=== PATIENT | female | born 1950 | race Caucasian/White ===

== ENCOUNTER 2016-10-01 07:11 | Inpatient (IN) ==
[2016-10-01 07:24] LABS: ABG Base Excess -1.5 mEq/L (-2.0 to 3.0); ABG HCO3 30.4 mEQ/L (21-27); ABG Oxygen Saturation 77 % (95-98); ABG PO2 57 mmHg (85-104); ABG TCO2 33.4 mEq/L (20-26)
[2016-10-01] MEDS: Furosemide 40 MG/4 ML VIAL IVP ONE ×2 (07:25→13:02)
[2016-10-01] MEDS: Nitroglycerin 1 INCH/GM PACKET TP ONE ×2 (07:25→13:02)
[2016-10-01] MEDS: Ipratropium/Albuterol Neb 3 ML ONE ×2 (07:25→13:03)
[2016-10-01 07:27] LABS: ABG PCO2 98 mmHg (35-45); Blood Gas FiO2 100 %
[2016-10-01 07:39] LABS: Nucleated Red Blood Cells 0.1 /100 WBC (0)
[2016-10-01 07:40] LABS: Hematocrit 37.6 % (35.3-44.9); Mean Corpuscular HGB Conc 29.3 g/dL (31.6-35.5); Mean Corpuscular Hemoglobin 24.6 pg (28.0-33.3); Mean Corpuscular Volume 84.1 fL (83.0-100.0); Mean Platelet Volume 9.5 fL (9.4-12.4); Platelet Count 547 K/mcL (140-400); Red Blood Count 4.47 M/mcL (3.82-4.97); Red Cell Distribution Width 15.8 % (11.5-14.5)
--- NOTE | 2016-10-01 07:54 | Emergency Department Note ---
Disposition Clinical Impression: Congestive heart failure Qualifiers: Congestive heart failure type: unspecified congestive heart failure type Congestive heart failure chronicity: acute Qualified Code(s): I50.9 - Heart failure, unspecified Respiratory failure Qualifiers: Chronicity: acute Respiratory failure complication: hypoxia Qualified Code(s): J96.01 - Acute respiratory failure with hypoxia Sepsis Qualifiers: Sepsis type: sepsis due to unspecified organism Qualified Code(s): A41.9 - Sepsis, unspecified organism Disposition: Admitted As Inpatient Condition: Fair Referrals: Luis Ron MD [Primary Care Provider] - 10/11/16 1:20 pm Zaar Brady DO [Partnered Physician] - 10/18/16 1:00 pm Time of Disposition: 08:43 SOB HPI - General Chief Complaint: ED Shortness of Breath/Dyspnea Stated Complaint: Resp distress/unconscious Time Seen by Provider: 10/01/16 07:16 Source: EMS Limitations: no limitations Nursing Notes Reviewed: Yes Vital Signs Reviewed: Yes - History of Present Illness Patient is a 58-year-old female who presents to [facility] ED via EMS in respiratory distress. Per EMS, they responded to a 911 call. Patient was hooked up to 2 L nasal cannula when they found her and she was saturating in the 50s. Patient was altered and was placed on a CPAP. Only medical history from EMS was history of COPD. Patient was switched over to BiPAP when she arrived. Within a few minutes, patient was able to follow commands and open her eyes spontaneously. After approximately one hour on the BiPAP, patient is able to have a little bit more history. States she has been sick over the last few days and has felt short of breath but this worsened last night. States she had a low-grade fever of 99. Pt Subjective Complaint: shortness of breath Onset (ago): day(s) Context: recent illness Severity: severe Consistency/Duration: gradually worsening Known history of: COPD Treatment prior to arrival: oxygen, NIPPV Cough present: No - Related Data Home oxygen amount: 2 liters Home Medications Medication Instructions Recorded Confirmed Metformin [Glucophage] 1,000 mg PO BID 05/21/15 10/01/16 Furosemide [Lasix] 40 mg PO BID 06/01/16 10/01/16 Ondansetron [Zofran] 8 mg PO DAILY 06/01/16 10/01/16 Potassium Chloride [K-Tab ER] 10 meq PO BID 06/01/16 10/01/16 Clopidogrel [Plavix] 75 mg PO DAILY 10/01/16 10/01/16 Fenofibrate [Lofibra] 160 mg PO DAILY 10/01/16 10/01/16 Gabapentin [Gabapentin] 800 mg PO TID 10/01/16 10/01/16 GlipiZIDE [Glipizide] 10 mg PO BID 10/01/16 10/01/16 LORazepam [Ativan] 0.5 mg PO Q8H PRN 10/01/16 10/01/16 Lisinopril [Zestril] 20 mg PO DAILY 10/01/16 10/01/16 Nitroglycerin [Nitrostat] 0.4 mg PO AD PRN 10/01/16 10/01/16 Oxycodone HCl [Oxycodone HCl] 10 mg PO TID PRN 10/01/16 10/01/16 Oxycodone HCl [Oxycodone HCl] 20 mg PO HS 10/01/16 10/01/16 Previous Rx's Medication Instructions Recorded Metoprolol XL (24 HR) Succ [Toprol 100 mg PO DAILY #30 tab.er.24h 04/26/15 XL] Isosorbide MONOnitrate (24 HR) 120 mg PO DAILY 30 Days 11/08/15 [Imdur] Atorvastatin [Lipitor] 40 mg PO HS #30 tablet 03/28/16 Allergies Allergy/AdvReac Type Severity Reaction Status Date / Time No Known Allergies Allergy Verified 07/30/16 21:39 All systems ED: reviewed and negative except as stated. Past Medical History - Past Medical History Attestation: Yes The following information was validated with the patient. Source: patient Medical history: Reports: asthma, CHF, diabetes, myocardial infarction Psychiatric history: Reports: no psych history - Social History Smoking Status: Current every day smoker Smokeless Tobacco Status: No Alcohol use: Reports: unknown Drug use: Reports: unknown Physical Exam - General Limitations: altered mental status General appearance: in distress - Head Head exam: atraumatic, normocephalic, normal inspection - Eye Eye exam: Present: normal appearance, PERRL, EOMI - ENT ENT exam: normal exam, normal oropharynx, mucous membranes moist - Neck Neck exam: Present: normal inspection, full ROM, trachea midline - Chest Chest inspection: Present: normal inspection, symmetric chest wall rise - Respiratory Respiratory exam: Present: respiratory distress, other (Crackles and decreased breath sounds bilaterally) - Cardiovascular Cardiovascular exam: Present: normal rhythm, tachycardia - Abdominal Exam Abdominal exam: Present: soft, Non-Tender. Absent: tenderness, distention, guarding, rebound, rigidity - Extremities Exam Extremities exam: Present: full ROM, pedal edema. Absent: tenderness - Back Exam Back exam: Present: normal inspection, full ROM. Absent: tenderness - Neurological Exam Neurological exam: Present: alert, oriented X3 - Psychiatric Psychiatric exam: Present: normal affect, normal mood - Skin Skin exam: Present: warm, dry, intact, normal color Course Course Narrative: Patient seen and examined. Respiratory failure. She lives able to be stabilized with BiPAP. She was given 3 duo nebs, 80 mg IV Lasix and Nitropaste. Her blood pressure was initially 200s over 100. Bedside echo showed hyperdynamic motion and dilated IVC consistent with fluid overload. Critical care workup was ordered. Chest x-ray showed pulmonary edema with some effusions and infiltration. WBC count over 25,000 with bandemia. This is consistent with pneumonia/CHF exacerbation. Patient denies knowing any history of having CHF or COPD. Patient's blood pressure has remained elevated and we will go ahead and place her on a nitro drip. We will admit to hospitalist. - Reevaluation(s) Reevaluation #1: I spoke with hospitalist Dr. Goodson who has accepted patient for admission. She would like patient on 2 N. Time: 08:41 Vital Signs Temperature 0 F L 10/01/16 07:13 Pulse Rate 130 10/01/16 07:13 Respiratory Rate 30 10/01/16 07:13 Blood Pressure 241/111 10/01/16 07:13 O2 Sat by Pulse Oximetry 94 L 10/01/16 07:13 Temperature 97.6 F 10/01/16 07:34 Pulse Rate 107 10/01/16 08:49 Respiratory Rate 26 10/01/16 08:49 Blood Pressure 159/71 10/01/16 08:49 O2 Sat by Pulse Oximetry 100 10/01/16 08:49 Oxygen Delivery Oxygen Delivery Bipap Shortness of Breath/Dyspnea - Medical Records Medical records reviewed: Yes I reviewed the patient's medical records. - Lab Data Lab results reviewed: Yes I reviewed the patient's lab results. Result diagrams: 10/01/16 07:30 10/01/16 07:52 Lab Results 10/01/16 10/01/16 10/01/16 Range/Units 04:03 07:15 07:30 WBC 25.7 H (4.3-11.1) K/mcL RBC 4.47 (3.82-4.97) M/mcL Hgb 11.0 L (11.5-15.4) g/dL Hct 37.6 (35.3-44.9) % MCV 84.1 (83.0-100.0) fL MCH 24.6 L (28.0-33.3) pg MCHC 29.3 L (31.6-35.5) g/dL RDW 15.8 H (11.5-14.5) % Plt Count 547 H (140-400) K/mcL MPV 9.5 (9.4-12.4) fL Immature Gran % Test Not Performed Seg Neutrophils % 54.0 % Band Neutrophils % 2.0 (0-4) % Lymphocytes % 36.0 % Monocytes % 6.0 % Eosinophils % 2.0 % Basophils % Test Not Performed Neutrophils # 14.4 H (1.6-8.9) K/mcL Lymphocytes # 9.3 H (0.6-4.6) K/mcL Monocytes # 1.5 H (0.0-1.3) K/mcL Eosinophils # 0.5 (0.0-0.6) K/mcL Basophils # Test Not Performed Nucleated RBCs/100 WBC 0.1 H (0) /100 WBC Platelet Estimate Slight increase H (Normal) Polychromasia 1+ A (Not Present) Hypochromasia Present A (Not Present) PT (9.4-12.1) Seconds INR APTT (26.0-36.0) Seconds ABG pH 7.10 L* (7.32-7.45) pH Units ABG pCO2 98 H* (35-45) mmHg ABG pO2 57 L (85-104) mmHg ABG HCO3 30.4 H (21-27) mEQ/L ABG Total CO2 33.4 H (20-26) mEq/L ABG O2 Saturation 77 L (95-98) % ABG Base Excess -1.5 (-2.0 to 3.0) mEq/L Blood Gas Modality BIPAP Inspired O2 100 % Sodium (136-145) mEq/L Potassium (3.5-4.5) mEq/L Chloride (98-109) mEq/L Carbon Dioxide (19-29) mEq/L BUN (7-20) mg/dL Creatinine (0.57-1.11) mg/dL Est GFR ( Amer) (> 60) Est GFR (Non-Af Amer) (> 60) BUN/Creatinine Ratio (6-26) Glucose (70-99) mg/dL Calculated Osmolality (280-300) Lactic Acid (0.5-2.2) mmol/L Calcium (8.6-10.8) mg/dL Phosphorus (2.3-4.7) mg/dL Magnesium (1.6-2.6) mg/dL Total Bilirubin (0.2-1.2) mg/dL Direct Bilirubin (0.0-0.5) mg/dL Indirect Bilirubin (0.0-1.2) mg/dL AST (5-34) Units/L ALT (0-55) Units/L Alkaline Phosphatase (38-126) Units/L Troponin I (0-0.03) ng/mL B-Natriuretic Peptide (0-100) pg/mL Serum Total Protein (6.0-8.3) g/dL Albumin (3.5-5.0) g/dL Globulin (2.4-3.5) g/dL Albumin/Globulin Ratio (1.1-2.2) Urine Color Yellow (Yellow) Urine Clarity Clear (Clear) Urine pH 6.5 (5.0-8.0) pH Units Ur Specific [place] 1.020 (1.010-1.025) Urine Protein 100 H (Neg-Trace) mg/dL Urine Glucose (UA) 500 H (Normal) mg/dL Urine Ketones Negative (Negative) mg/dL Urine Blood Trace-lysed H (Negative) Urine Nitrite Negative (Negative) Urine Bilirubin Negative (Negative) Urine Urobilinogen Normal (Normal) mg/dL Ur Leukocyte Esterase Negative (Negative) Urine Microscopic RBC 0-3 (0-3) per hpf Urine Microscopic WBC 0-3 (0-3) per hpf Ur Squamous Epith Cells Many H (None-Few) per lpf Urine Bacteria None Seen (None-Few) per hpf Hyaline Casts None Seen (None-Few) per lpf Ur Culture Indicated? NO (NO) Specimen Rejected 10/01/16 10/01/16 10/01/16 Range/Units 07:30 07:30 07:30 WBC (4.3-11.1) K/mcL RBC (3.82-4.97) M/mcL Hgb (11.5-15.4) g/dL Hct (35.3-44.9) % MCV (83.0-100.0) fL MCH (28.0-33.3) pg MCHC (31.6-35.5) g/dL RDW (11.5-14.5) % Plt Count (140-400) K/mcL MPV (9.4-12.4) fL Immature Gran % Seg Neutrophils % % Band Neutrophils % (0-4) % Lymphocytes % % Monocytes % % Eosinophils % % Basophils % Neutrophils # (1.6-8.9) K/mcL Lymphocytes # (0.6-4.6) K/mcL Monocytes # (0.0-1.3) K/mcL Eosinophils # (0.0-0.6) K/mcL Basophils # Nucleated RBCs/100 WBC (0) /100 WBC Platelet Estimate (Normal) Polychromasia (Not Present) Hypochromasia (Not Present) PT (9.4-12.1) Seconds INR APTT (26.0-36.0) Seconds ABG pH (7.32-7.45) pH Units ABG pCO2 (35-45) mmHg ABG pO2 (85-104) mmHg ABG HCO3 (21-27) mEQ/L ABG Total CO2 (20-26) mEq/L ABG O2 Saturation (95-98) % ABG Base Excess (-2.0 to 3.0) mEq/L Blood Gas Modality Inspired O2 % Sodium (136-145) mEq/L Potassium (3.5-4.5) mEq/L Chloride (98-109) mEq/L Carbon Dioxide (19-29) mEq/L BUN (7-20) mg/dL Creatinine (0.57-1.11) mg/dL Est GFR ( Amer) (> 60) Est GFR (Non-Af Amer) (> 60) BUN/Creatinine Ratio (6-26) Glucose (70-99) mg/dL Calculated Osmolality (280-300) Lactic Acid (0.5-2.2) mmol/L Calcium (8.6-10.8) mg/dL Phosphorus (2.3-4.7) mg/dL Magnesium (1.6-2.6) mg/dL Total Bilirubin (0.2-1.2) mg/dL Direct Bilirubin (0.0-0.5) mg/dL Indirect Bilirubin (0.0-1.2) mg/dL AST (5-34) Units/L ALT (0-55) Units/L Alkaline Phosphatase (38-126) Units/L Troponin I 0.02 (0-0.03) ng/mL B-Natriuretic Peptide 376 H (0-100) pg/mL Serum Total Protein (6.0-8.3) g/dL Albumin (3.5-5.0) g/dL Globulin (2.4-3.5) g/dL Albumin/Globulin Ratio (1.1-2.2) Urine Color (Yellow) Urine Clarity (Clear) Urine pH (5.0-8.0) pH Units Ur Specific [place] (1.010-1.025) Urine Protein (Neg-Trace) mg/dL Urine Glucose (UA) (Normal) mg/dL Urine Ketones (Negative) mg/dL Urine Blood (Negative) Urine Nitrite (Negative) Urine Bilirubin (Negative) Urine Urobilinogen (Normal) mg/dL Ur Leukocyte Esterase (Negative) Urine Microscopic RBC (0-3) per hpf Urine Microscopic WBC (0-3) per hpf Ur Squamous Epith Cells (None-Few) per lpf Urine Bacteria (None-Few) per hpf Hyaline Casts (None-Few) per lpf Ur Culture Indicated? (NO) Specimen Rejected Hemolyzed 10/01/16 10/01/16 10/01/16 Range/Units 07:32 07:52 07:52 WBC (4.3-11.1) K/mcL RBC (3.82-4.97) M/mcL Hgb (11.5-15.4) g/dL Hct (35.3-44.9) % MCV (83.0-100.0) fL MCH (28.0-33.3) pg MCHC (31.6-35.5) g/dL RDW (11.5-14.5) % Plt Count (140-400) K/mcL MPV (9.4-12.4) fL Immature Gran % Seg Neutrophils % % Band Neutrophils % (0-4) % Lymphocytes % % Monocytes % % Eosinophils % % Basophils % Neutrophils # (1.6-8.9) K/mcL Lymphocytes # (0.6-4.6) K/mcL Monocytes # (0.0-1.3) K/mcL Eosinophils # (0.0-0.6) K/mcL Basophils # Nucleated RBCs/100 WBC (0) /100 WBC Platelet Estimate (Normal) Polychromasia (Not Present) Hypochromasia (Not Present) PT (9.4-12.1) Seconds INR APTT (26.0-36.0) Seconds ABG pH (7.32-7.45) pH Units ABG pCO2 (35-45) mmHg ABG pO2 (85-104) mmHg ABG HCO3 (21-27) mEQ/L ABG Total CO2 (20-26) mEq/L ABG O2 Saturation (95-98) % ABG Base Excess (-2.0 to 3.0) mEq/L Blood Gas Modality Inspired O2 % Sodium 142 (136-145) mEq/L Potassium 3.6 (3.5-4.5) mEq/L Chloride 96 L (98-109) mEq/L Carbon Dioxide 27 (19-29) mEq/L BUN 12 (7-20) mg/dL Creatinine 0.90 (0.57-1.11) mg/dL Est GFR ( Amer) > 60 (> 60) Est GFR (Non-Af Amer) > 60 (> 60) BUN/Creatinine Ratio 13 (6-26) Glucose 436 H (70-99) mg/dL Calculated Osmolality 313 H (280-300) Lactic Acid 5.8 H* (0.5-2.2) mmol/L Calcium 9.8 (8.6-10.8) mg/dL Phosphorus 5.9 H (2.3-4.7) mg/dL Magnesium 1.2 L (1.6-2.6) mg/dL Total Bilirubin 0.4 (0.2-1.2) mg/dL Direct Bilirubin 0.3 (0.0-0.5) mg/dL Indirect Bilirubin 0.1 (0.0-1.2) mg/dL AST 60 H (5-34) Units/L ALT 47 (0-55) Units/L Alkaline Phosphatase 110 (38-126) Units/L Troponin I (0-0.03) ng/mL B-Natriuretic Peptide (0-100) pg/mL Serum Total Protein 7.6 (6.0-8.3) g/dL Albumin 3.2 L (3.5-5.0) g/dL Globulin 4.4 H (2.4-3.5) g/dL Albumin/Globulin Ratio 0.7 L (1.1-2.2) Urine Color (Yellow) Urine Clarity (Clear) Urine pH (5.0-8.0) pH Units Ur Specific [place] (1.010-1.025) Urine Protein (Neg-Trace) mg/dL Urine Glucose (UA) (Normal) mg/dL Urine Ketones (Negative) mg/dL Urine Blood (Negative) Urine Nitrite (Negative) Urine Bilirubin (Negative) Urine Urobilinogen (Normal) mg/dL Ur Leukocyte Esterase (Negative) Urine Microscopic RBC (0-3) per hpf Urine Microscopic WBC (0-3) per hpf Ur Squamous Epith Cells (None-Few) per lpf Urine Bacteria (None-Few) per hpf Hyaline Casts (None-Few) per lpf Ur Culture Indicated? (NO) Specimen Rejected Labelling 10/01/16 10/01/16 Range/Units 07:52 08:18 WBC (4.3-11.1) K/mcL RBC (3.82-4.97) M/mcL Hgb (11.5-15.4) g/dL Hct (35.3-44.9) % MCV (83.0-100.0) fL MCH (28.0-33.3) pg MCHC (31.6-35.5) g/dL RDW (11.5-14.5) % Plt Count (140-400) K/mcL MPV (9.4-12.4) fL Immature Gran % Seg Neutrophils % % Band Neutrophils % (0-4) % Lymphocytes % % Monocytes % % Eosinophils % % Basophils % Neutrophils # (1.6-8.9) K/mcL Lymphocytes # (0.6-4.6) K/mcL Monocytes # (0.0-1.3) K/mcL Eosinophils # (0.0-0.6) K/mcL Basophils # Nucleated RBCs/100 WBC (0) /100 WBC Platelet Estimate (Normal) Polychromasia (Not Present) Hypochromasia (Not Present) PT 13.4 H (9.4-12.1) Seconds INR 1.2 APTT 29.2 (26.0-36.0) Seconds ABG pH 7.33 D (7.32-7.45) pH Units ABG pCO2 64 H D (35-45) mmHg ABG pO2 120 H (85-104) mmHg ABG HCO3 33.7 H (21-27) mEQ/L ABG Total CO2 35.7 H (20-26) mEq/L ABG O2 Saturation 98 (95-98) % ABG Base Excess 6.1 H (-2.0 to 3.0) mEq/L Blood Gas Modality BIPAP Inspired O2 100 % Sodium (136-145) mEq/L Potassium (3.5-4.5) mEq/L Chloride (98-109) mEq/L Carbon Dioxide (19-29) mEq/L BUN (7-20) mg/dL Creatinine (0.57-1.11) mg/dL Est GFR ( Amer) (> 60) Est GFR (Non-Af Amer) (> 60) BUN/Creatinine Ratio (6-26) Glucose (70-99) mg/dL Calculated Osmolality (280-300) Lactic Acid (0.5-2.2) mmol/L Calcium (8.6-10.8) mg/dL Phosphorus (2.3-4.7) mg/dL Magnesium (1.6-2.6) mg/dL Total Bilirubin (0.2-1.2) mg/dL Direct Bilirubin (0.0-0.5) mg/dL Indirect Bilirubin (0.0-1.2) mg/dL AST (5-34) Units/L ALT (0-55) Units/L Alkaline Phosphatase (38-126) Units/L Troponin I (0-0.03) ng/mL B-Natriuretic Peptide (0-100) pg/mL Serum Total Protein (6.0-8.3) g/dL Albumin (3.5-5.0) g/dL Globulin (2.4-3.5) g/dL Albumin/Globulin Ratio (1.1-2.2) Urine Color (Yellow) Urine Clarity (Clear) Urine pH (5.0-8.0) pH Units Ur Specific [place] (1.010-1.025) Urine Protein (Neg-Trace) mg/dL Urine Glucose (UA) (Normal) mg/dL Urine Ketones (Negative) mg/dL Urine Blood (Negative) Urine Nitrite (Negative) Urine Bilirubin (Negative) Urine Urobilinogen (Normal) mg/dL Ur Leukocyte Esterase (Negative) Urine Microscopic RBC (0-3) per hpf Urine Microscopic WBC (0-3) per hpf Ur Squamous Epith Cells (None-Few) per lpf Urine Bacteria (None-Few) per hpf Hyaline Casts (None-Few) per lpf Ur Culture Indicated? (NO) Specimen Rejected - Radiology Data Radiology results reviewed: Yes I reviewed the patient's radiology results. - EKG Data EKG attestation: Yes I reviewed and interpreted this EKG. EKG results narrative: EKG done at 718 shows sinus tachycardia with a rate of 1 26/m. There is some ST depression in leads V3 through V6.
[2016-10-01] MEDS ORDERED: Nitroglycerin 25 MG/250 ML INFUS..BTL IVC SCH (08:00)
[2016-10-01 08:04] LABS: Eosinophils # 0.5 K/mcL (0.0-0.6); Lymphocytes # 9.3 K/mcL (0.6-4.6); Monocytes # 1.5 K/mcL (0.0-1.3); Neutrophils # 14.4 K/mcL (1.6-8.9)
[2016-10-01 08:05] LABS: Hypochromasia Present (Not Present); Polychromasia 1+ (Not Present)
[2016-10-01 08:08] LABS: BUN/Creatinine Ratio 13 (6-26); Blood Urea Nitrogen 12 mg/dL (7-20); Calcium 9.8 mg/dL (8.6-10.8); Carbon Dioxide 27 mEq/L (19-29); Chloride 96 mEq/L (98-109); Glucose 436 mg/dL (70-99); Osmolality,Calculated 313 (280-300); Potassium 3.6 mEq/L (3.5-4.5); Sodium 142 mEq/L (136-145); eGFR For African Americans > 60 (> 60); eGFR For Non-African Americans > 60 (> 60)
[2016-10-01] MEDS ORDERED: Vancomycin 2,000 MG in D5% in Water 500 ML IVPB ONE (08:12)
[2016-10-01] MEDS ORDERED: Levofloxacin 750 MG/150 ML 750 MG/150 ML BAG IVPB ONE (08:12)
[2016-10-01] MEDS ORDERED: Piperacillin/Tazobactam 3.375 GM in D5% in Water (Mini-Bag+) 100 ML IVPB ONE (08:12)
[2016-10-01 08:26] LABS: ABG Base Excess 6.1 mEq/L (-2.0 to 3.0); ABG HCO3 33.7 mEQ/L (21-27); ABG Oxygen Saturation 98 % (95-98); ABG PCO2 64 mmHg (35-45); ABG PH 7.33 pH Units (7.32-7.45); ABG PO2 120 mmHg (85-104); ABG TCO2 35.7 mEq/L (20-26); Blood Gas FiO2 100 %
--- NOTE | 2016-10-01 08:43 | Emergency Department Note ---
Disposition Clinical Impression: Congestive heart failure Qualifiers: Congestive heart failure type: unspecified congestive heart failure type Congestive heart failure chronicity: acute Qualified Code(s): I50.9 - Heart failure, unspecified Respiratory failure Qualifiers: Chronicity: acute Respiratory failure complication: hypoxia Qualified Code(s): J96.01 - Acute respiratory failure with hypoxia Sepsis Qualifiers: Sepsis type: sepsis due to unspecified organism Qualified Code(s): A41.9 - Sepsis, unspecified organism Disposition: Admitted As Inpatient Condition: Fair SOB HPI - General Chief Complaint: ED Shortness of Breath/Dyspnea Stated Complaint: Resp distress/unconscious Time Seen by Provider: 10/01/16 07:16 Source: EMS Limitations: altered mental status - History of Present Illness Severity: severe Treatment prior to arrival: oxygen, NIPPV - Related Data Home oxygen amount: 2 liters Home Medications Medication Instructions Recorded Confirmed Metformin [Glucophage] 1,000 mg PO BID 05/21/15 10/01/16 Furosemide [Lasix] 40 mg PO BID 06/01/16 10/01/16 Ondansetron [Zofran] 8 mg PO DAILY 06/01/16 10/01/16 Potassium Chloride [K-Tab ER] 10 meq PO BID 06/01/16 10/01/16 Clopidogrel [Plavix] 75 mg PO DAILY 10/01/16 10/01/16 Fenofibrate [Lofibra] 160 mg PO DAILY 10/01/16 10/01/16 Gabapentin [Gabapentin] 800 mg PO TID 10/01/16 10/01/16 GlipiZIDE [Glipizide] 10 mg PO BID 10/01/16 10/01/16 LORazepam [Ativan] 0.5 mg PO Q8H PRN 10/01/16 10/01/16 Lisinopril [Zestril] 20 mg PO DAILY 10/01/16 10/01/16 Nitroglycerin [Nitrostat] 0.4 mg PO AD PRN 10/01/16 10/01/16 Oxycodone HCl [Oxycodone HCl] 10 mg PO TID PRN 10/01/16 10/01/16 Oxycodone HCl [Oxycodone HCl] 20 mg PO HS 10/01/16 10/01/16 Previous Rx's Medication Instructions Recorded Metoprolol XL (24 HR) Succ [Toprol 100 mg PO DAILY #30 tab.er.24h 04/26/15 XL] Isosorbide MONOnitrate (24 HR) 120 mg PO DAILY 30 Days 11/08/15 [Imdur] Atorvastatin [Lipitor] 40 mg PO HS #30 tablet 03/28/16 Allergies Allergy/AdvReac Type Severity Reaction Status Date / Time No Known Allergies Allergy Verified 07/30/16 21:39 Past Medical History - Past Medical History Medical history: Reports: asthma, CHF, diabetes, myocardial infarction Surgical history: Reports: angioplasty/stent, carotid endarterectomy, other, vascular surgery Psychiatric history: Reports: no psych history 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 - Social History Smoking Status: Current every day smoker Smokeless Tobacco Status: No Alcohol use: Reports: unknown Drug use: Reports: unknown Physical Exam - General Limitations: altered mental status General appearance: in distress Course Vital Signs Temperature 0 F L 10/01/16 07:13 Pulse Rate 130 10/01/16 07:13 Respiratory Rate 30 10/01/16 07:13 Blood Pressure 241/111 10/01/16 07:13 O2 Sat by Pulse Oximetry 94 L 10/01/16 07:13 Temperature 98.2 F 10/01/16 15:16 Pulse Rate 79 10/01/16 15:16 Respiratory Rate 16 10/01/16 15:57 Blood Pressure 105/51 10/01/16 15:16 O2 Sat by Pulse Oximetry 96 10/01/16 15:57 Oxygen Delivery Oxygen Delivery CPAP Mask O2 Shortness of Breath/Dyspnea - Lab Data Result diagrams: 10/01/16 07:30 10/01/16 15:55 Lab Results 10/01/16 10/01/16 10/01/16 Range/Units 04:03 07:15 07:30 WBC 25.7 H (4.3-11.1) K/mcL RBC 4.47 (3.82-4.97) M/mcL Hgb 11.0 L (11.5-15.4) g/dL Hct 37.6 (35.3-44.9) % MCV 84.1 (83.0-100.0) fL MCH 24.6 L (28.0-33.3) pg MCHC 29.3 L (31.6-35.5) g/dL RDW 15.8 H (11.5-14.5) % Plt Count 547 H (140-400) K/mcL MPV 9.5 (9.4-12.4) fL Immature Gran % Test Not Performed Seg Neutrophils % 54.0 % Band Neutrophils % 2.0 (0-4) % Lymphocytes % 36.0 % Monocytes % 6.0 % Eosinophils % 2.0 % Basophils % Test Not Performed Neutrophils # 14.4 H (1.6-8.9) K/mcL Lymphocytes # 9.3 H (0.6-4.6) K/mcL Monocytes # 1.5 H (0.0-1.3) K/mcL Eosinophils # 0.5 (0.0-0.6) K/mcL Basophils # Test Not Performed Nucleated RBCs/100 WBC 0.1 H (0) /100 WBC Platelet Estimate Slight increase H (Normal) Polychromasia 1+ A (Not Present) Hypochromasia Present A (Not Present) PT (9.4-12.1) Seconds INR APTT (26.0-36.0) Seconds ABG pH 7.10 L* (7.32-7.45) pH Units ABG pCO2 98 H* (35-45) mmHg ABG pO2 57 L (85-104) mmHg ABG HCO3 30.4 H (21-27) mEQ/L ABG Total CO2 33.4 H (20-26) mEq/L ABG O2 Saturation 77 L (95-98) % ABG Base Excess -1.5 (-2.0 to 3.0) mEq/L Blood Gas Modality BIPAP Inspired O2 100 % Sodium (136-145) mEq/L Potassium (3.5-4.5) mEq/L Chloride (98-109) mEq/L Carbon Dioxide (19-29) mEq/L BUN (7-20) mg/dL Creatinine (0.57-1.11) mg/dL Est GFR ( Amer) (> 60) Est GFR (Non-Af Amer) (> 60) BUN/Creatinine Ratio (6-26) Glucose (70-99) mg/dL Calculated Osmolality (280-300) Lactic Acid (0.5-2.2) mmol/L Calcium (8.6-10.8) mg/dL Phosphorus (2.3-4.7) mg/dL Magnesium (1.6-2.6) mg/dL Total Bilirubin (0.2-1.2) mg/dL Direct Bilirubin (0.0-0.5) mg/dL Indirect Bilirubin (0.0-1.2) mg/dL AST (5-34) Units/L ALT (0-55) Units/L Alkaline Phosphatase (38-126) Units/L Troponin I (0-0.03) ng/mL B-Natriuretic Peptide (0-100) pg/mL Serum Total Protein (6.0-8.3) g/dL Albumin (3.5-5.0) g/dL Globulin (2.4-3.5) g/dL Albumin/Globulin Ratio (1.1-2.2) Urine Color Yellow (Yellow) Urine Clarity Clear (Clear) Urine pH 6.5 (5.0-8.0) pH Units Ur Specific [place] 1.020 (1.010-1.025) Urine Protein 100 H (Neg-Trace) mg/dL Urine Glucose (UA) 500 H (Normal) mg/dL Urine Ketones Negative (Negative) mg/dL Urine Blood Trace-lysed H (Negative) Urine Nitrite Negative (Negative) Urine Bilirubin Negative (Negative) Urine Urobilinogen Normal (Normal) mg/dL Ur Leukocyte Esterase Negative (Negative) Urine Microscopic RBC 0-3 (0-3) per hpf Urine Microscopic WBC 0-3 (0-3) per hpf Ur Squamous Epith Cells Many H (None-Few) per lpf Urine Bacteria None Seen (None-Few) per hpf Hyaline Casts None Seen (None-Few) per lpf Ur Culture Indicated? NO (NO) Specimen Rejected 10/01/16 10/01/16 10/01/16 Range/Units 07:30 07:30 07:30 WBC (4.3-11.1) K/mcL RBC (3.82-4.97) M/mcL Hgb (11.5-15.4) g/dL Hct (35.3-44.9) % MCV (83.0-100.0) fL MCH (28.0-33.3) pg MCHC (31.6-35.5) g/dL RDW (11.5-14.5) % Plt Count (140-400) K/mcL MPV (9.4-12.4) fL Immature Gran % Seg Neutrophils % % Band Neutrophils % (0-4) % Lymphocytes % % Monocytes % % Eosinophils % % Basophils % Neutrophils # (1.6-8.9) K/mcL Lymphocytes # (0.6-4.6) K/mcL Monocytes # (0.0-1.3) K/mcL Eosinophils # (0.0-0.6) K/mcL Basophils # Nucleated RBCs/100 WBC (0) /100 WBC Platelet Estimate (Normal) Polychromasia (Not Present) Hypochromasia (Not Present) PT (9.4-12.1) Seconds INR APTT (26.0-36.0) Seconds ABG pH (7.32-7.45) pH Units ABG pCO2 (35-45) mmHg ABG pO2 (85-104) mmHg ABG HCO3 (21-27) mEQ/L ABG Total CO2 (20-26) mEq/L ABG O2 Saturation (95-98) % ABG Base Excess (-2.0 to 3.0) mEq/L Blood Gas Modality Inspired O2 % Sodium (136-145) mEq/L Potassium (3.5-4.5) mEq/L Chloride (98-109) mEq/L Carbon Dioxide (19-29) mEq/L BUN (7-20) mg/dL Creatinine (0.57-1.11) mg/dL Est GFR ( Amer) (> 60) Est GFR (Non-Af Amer) (> 60) BUN/Creatinine Ratio (6-26) Glucose (70-99) mg/dL Calculated Osmolality (280-300) Lactic Acid (0.5-2.2) mmol/L Calcium (8.6-10.8) mg/dL Phosphorus (2.3-4.7) mg/dL Magnesium (1.6-2.6) mg/dL Total Bilirubin (0.2-1.2) mg/dL Direct Bilirubin (0.0-0.5) mg/dL Indirect Bilirubin (0.0-1.2) mg/dL AST (5-34) Units/L ALT (0-55) Units/L Alkaline Phosphatase (38-126) Units/L Troponin I 0.02 (0-0.03) ng/mL B-Natriuretic Peptide 376 H (0-100) pg/mL Serum Total Protein (6.0-8.3) g/dL Albumin (3.5-5.0) g/dL Globulin (2.4-3.5) g/dL Albumin/Globulin Ratio (1.1-2.2) Urine Color (Yellow) Urine Clarity (Clear) Urine pH (5.0-8.0) pH Units Ur Specific [place] (1.010-1.025) Urine Protein (Neg-Trace) mg/dL Urine Glucose (UA) (Normal) mg/dL Urine Ketones (Negative) mg/dL Urine Blood (Negative) Urine Nitrite (Negative) Urine Bilirubin (Negative) Urine Urobilinogen (Normal) mg/dL Ur Leukocyte Esterase (Negative) Urine Microscopic RBC (0-3) per hpf Urine Microscopic WBC (0-3) per hpf Ur Squamous Epith Cells (None-Few) per lpf Urine Bacteria (None-Few) per hpf Hyaline Casts (None-Few) per lpf Ur Culture Indicated? (NO) Specimen Rejected Hemolyzed 10/01/16 10/01/16 10/01/16 Range/Units 07:32 07:52 07:52 WBC (4.3-11.1) K/mcL RBC (3.82-4.97) M/mcL Hgb (11.5-15.4) g/dL Hct (35.3-44.9) % MCV (83.0-100.0) fL MCH (28.0-33.3) pg MCHC (31.6-35.5) g/dL RDW (11.5-14.5) % Plt Count (140-400) K/mcL MPV (9.4-12.4) fL Immature Gran % Seg Neutrophils % % Band Neutrophils % (0-4) % Lymphocytes % % Monocytes % % Eosinophils % % Basophils % Neutrophils # (1.6-8.9) K/mcL Lymphocytes # (0.6-4.6) K/mcL Monocytes # (0.0-1.3) K/mcL Eosinophils # (0.0-0.6) K/mcL Basophils # Nucleated RBCs/100 WBC (0) /100 WBC Platelet Estimate (Normal) Polychromasia (Not Present) Hypochromasia (Not Present) PT (9.4-12.1) Seconds INR APTT (26.0-36.0) Seconds ABG pH (7.32-7.45) pH Units ABG pCO2 (35-45) mmHg ABG pO2 (85-104) mmHg ABG HCO3 (21-27) mEQ/L ABG Total CO2 (20-26) mEq/L ABG O2 Saturation (95-98) % ABG Base Excess (-2.0 to 3.0) mEq/L Blood Gas Modality Inspired O2 % Sodium 142 (136-145) mEq/L Potassium 3.6 (3.5-4.5) mEq/L Chloride 96 L (98-109) mEq/L Carbon Dioxide 27 (19-29) mEq/L BUN 12 (7-20) mg/dL Creatinine 0.90 (0.57-1.11) mg/dL Est GFR ( Amer) > 60 (> 60) Est GFR (Non-Af Amer) > 60 (> 60) BUN/Creatinine Ratio 13 (6-26) Glucose 436 H (70-99) mg/dL Calculated Osmolality 313 H (280-300) Lactic Acid 5.8 H* (0.5-2.2) mmol/L Calcium 9.8 (8.6-10.8) mg/dL Phosphorus 5.9 H (2.3-4.7) mg/dL Magnesium 1.2 L (1.6-2.6) mg/dL Total Bilirubin 0.4 (0.2-1.2) mg/dL Direct Bilirubin 0.3 (0.0-0.5) mg/dL Indirect Bilirubin 0.1 (0.0-1.2) mg/dL AST 60 H (5-34) Units/L ALT 47 (0-55) Units/L Alkaline Phosphatase 110 (38-126) Units/L Troponin I (0-0.03) ng/mL B-Natriuretic Peptide (0-100) pg/mL Serum Total Protein 7.6 (6.0-8.3) g/dL Albumin 3.2 L (3.5-5.0) g/dL Globulin 4.4 H (2.4-3.5) g/dL Albumin/Globulin Ratio 0.7 L (1.1-2.2) Urine Color (Yellow) Urine Clarity (Clear) Urine pH (5.0-8.0) pH Units Ur Specific [place] (1.010-1.025) Urine Protein (Neg-Trace) mg/dL Urine Glucose (UA) (Normal) mg/dL Urine Ketones (Negative) mg/dL Urine Blood (Negative) Urine Nitrite (Negative) Urine Bilirubin (Negative) Urine Urobilinogen (Normal) mg/dL Ur Leukocyte Esterase (Negative) Urine Microscopic RBC (0-3) per hpf Urine Microscopic WBC (0-3) per hpf Ur Squamous Epith Cells (None-Few) per lpf Urine Bacteria (None-Few) per hpf Hyaline Casts (None-Few) per lpf Ur Culture Indicated? (NO) Specimen Rejected Labelling 10/01/16 10/01/16 Range/Units 07:52 08:18 WBC (4.3-11.1) K/mcL RBC (3.82-4.97) M/mcL Hgb (11.5-15.4) g/dL Hct (35.3-44.9) % MCV (83.0-100.0) fL MCH (28.0-33.3) pg MCHC (31.6-35.5) g/dL RDW (11.5-14.5) % Plt Count (140-400) K/mcL MPV (9.4-12.4) fL Immature Gran % Seg Neutrophils % % Band Neutrophils % (0-4) % Lymphocytes % % Monocytes % % Eosinophils % % Basophils % Neutrophils # (1.6-8.9) K/mcL Lymphocytes # (0.6-4.6) K/mcL Monocytes # (0.0-1.3) K/mcL Eosinophils # (0.0-0.6) K/mcL Basophils # Nucleated RBCs/100 WBC (0) /100 WBC Platelet Estimate (Normal) Polychromasia (Not Present) Hypochromasia (Not Present) PT 13.4 H (9.4-12.1) Seconds INR 1.2 APTT 29.2 (26.0-36.0) Seconds ABG pH 7.33 D (7.32-7.45) pH Units ABG pCO2 64 H D (35-45) mmHg ABG pO2 120 H (85-104) mmHg ABG HCO3 33.7 H (21-27) mEQ/L ABG Total CO2 35.7 H (20-26) mEq/L ABG O2 Saturation 98 (95-98) % ABG Base Excess 6.1 H (-2.0 to 3.0) mEq/L Blood Gas Modality BIPAP Inspired O2 100 % Sodium (136-145) mEq/L Potassium (3.5-4.5) mEq/L Chloride (98-109) mEq/L Carbon Dioxide (19-29) mEq/L BUN (7-20) mg/dL Creatinine (0.57-1.11) mg/dL Est GFR ( Amer) (> 60) Est GFR (Non-Af Amer) (> 60) BUN/Creatinine Ratio (6-26) Glucose (70-99) mg/dL Calculated Osmolality (280-300) Lactic Acid (0.5-2.2) mmol/L Calcium (8.6-10.8) mg/dL Phosphorus (2.3-4.7) mg/dL Magnesium (1.6-2.6) mg/dL Total Bilirubin (0.2-1.2) mg/dL Direct Bilirubin (0.0-0.5) mg/dL Indirect Bilirubin (0.0-1.2) mg/dL AST (5-34) Units/L ALT (0-55) Units/L Alkaline Phosphatase (38-126) Units/L Troponin I (0-0.03) ng/mL B-Natriuretic Peptide (0-100) pg/mL Serum Total Protein (6.0-8.3) g/dL Albumin (3.5-5.0) g/dL Globulin (2.4-3.5) g/dL Albumin/Globulin Ratio (1.1-2.2) Urine Color (Yellow) Urine Clarity (Clear) Urine pH (5.0-8.0) pH Units Ur Specific [place] (1.010-1.025) Urine Protein (Neg-Trace) mg/dL Urine Glucose (UA) (Normal) mg/dL Urine Ketones (Negative) mg/dL Urine Blood (Negative) Urine Nitrite (Negative) Urine Bilirubin (Negative) Urine Urobilinogen (Normal) mg/dL Ur Leukocyte Esterase (Negative) Urine Microscopic RBC (0-3) per hpf Urine Microscopic WBC (0-3) per hpf Ur Squamous Epith Cells (None-Few) per lpf Urine Bacteria (None-Few) per hpf Hyaline Casts (None-Few) per lpf Ur Culture Indicated? (NO) Specimen Rejected Attestation Statement - Attestation Attestation: I examined this patient and my medical decision-making was reviewed with the MANAGER STUDY/PA/Advanced Practice Nurse/Resident Physician. I agree with the documented findings, disposition and treatment plan as described except to the extent set forth below. Patient presented to the emergency department with severe difficulty breathing. EMS states it was a 911 call from the [facility] and they arrived to find her in severe respiratory distress. They state she went apneic A few times. They had no further history other than this. On examination she is in severe respiratory distress. Her head is nodding. She opens her eyes to verbal stimulus. Tachypneic. Accessory muscle use. Coarse breath sounds. Pitting edema bilateral lower legs. Plan. The patient was placed on BiPAP. CHF workup. She was given Lasix and nitroglycerin. On reevaluation the patient is improved. She is awake. She able to tell us her name and birthday at this time. X-ray shows pulmonary edema and possible infiltrate. Patient has elevated white blood cell count of 25. Sepsis protocol was initiated. She is receiving broad-spectrum antibiotic. Family present. The patient is much improved awake and alert. No longer in respiratory distress. Tolerating BiPAP. Heart rate improved. Blood pressure still elevated but much improved. The patient has had a significant amount of urinary output. Patient admitted to hospitalist.
[2016-10-01 08:57] LABS: INR 1.2; Prothrombin Time 13.4 Seconds (9.4-12.1)
[2016-10-01] MEDS ORDERED: Acetaminophen 325 MG TABLET PO PRN (08:57)
[2016-10-01] MEDS ORDERED: Naloxone 0.4 MG/ML INJ IVP PRN (08:57)
[2016-10-01] MEDS ORDERED: Ondansetron 4 MG/2 ML VIAL IVP PRN (08:57)
[2016-10-01 09:00] LABS: Activated Partial Thrombo Time 29.2 Seconds (26.0-36.0)
[2016-10-01 09:02] LABS: Alanine Aminotransferase 47 Units/L (0-55); Albumin 3.2 g/dL (3.5-5.0); Albumin/Globulin Ratio 0.7 (1.1-2.2); Alkaline Phosphatase 110 Units/L (38-126); Aspartate Amino Transferase 60 Units/L (5-34); Bilirubin,Direct 0.3 mg/dL (0.0-0.5); Bilirubin,Indirect 0.1 mg/dL (0.0-1.2); Bilirubin,Total 0.4 mg/dL (0.2-1.2); Globulin 4.4 g/dL (2.4-3.5); Magnesium 1.2 mg/dL (1.6-2.6); Phosphorous 5.9 mg/dL (2.3-4.7); Total Protein 7.6 g/dL (6.0-8.3)
[2016-10-01] MEDS ORDERED: Albuterol 2.5 MG/3 ML NEBULIZER IH PRN (09:03)
--- NOTE | 2016-10-01 09:14 | Internal Med History&Physical ---
Date of Encounter: 10/01/16 Time of Encounter: 09:00 Assessment and Plan (1) Acute respiratory failure with hypoxia and hypercapnia Current visit: Yes Status: Acute multifactorial etiology: PNA, pulmonary edema, COPD exacerbation. CXR showed interstitial pulmonary vascular congestion, trace right pleural effusion and basilar airspace opacities. BNP 376. troponin negative. EKG showed ST HR 124. continue BIPAP IV lasix, fluid restriction, strict I/O duonebs Iv levaquin IV vancomycin check CT chest and echo mucinex. (2) Sepsis Current visit: Yes Status: Acute tachycardia HR 124, WEBC 25, source PNA. lactic acid 5.8. repeat lactic acid. empiric antibiotics. Qualifiers: Sepsis type: sepsis due to unspecified organism Qualified Code(s): A41.9 - Sepsis, unspecified organism (3) CAP (community acquired pneumonia) Current visit: Yes Status: Acute plan as above (4) Acute heart failure Current visit: Yes Status: Acute echocardiogram May 2016: LVEF 60%. plan as above Qualifiers: Heart failure type: diastolic Qualified Code(s): I50.31 - Acute diastolic ( congestive) heart failure (5) Hypertensive urgency Current visit: Yes Status: Acute nitrodrip. resume home meds. close monitoring. (6) Diabetes mellitus type 2 with atherosclerosis of arteries of extremities Current visit: No Status: Chronic ISSS. diaebtic diet. (7) History of coronary artery disease Current visit: No Status: Acute resume home meds (8) Peripheral vascular disease Current visit: No Status: Acute resume home meds (9) Tobacco abuse Current visit: No Status: Chronic counseled to quit (10) Morbid obesity due to excess calories Current visit: No Status: Chronic bmi 49 Internal Medicine - H&P: HPI Chief complaint: Respiratory distress in spite of a.m. Admitted From: Home Plans for Post Hospital Care: Home History of present illness: Ms. Nieves is a 65 year old female with past medical history of diabetes, COPD, hypertension, and morbid obesity. Patient woke up at 5 AM because of severe difficulty in breathing. She called 911 and upon arrival, patient was pale, diaphoretic and in severe respiratory distress. SaO2 was 75% on room air. In our ED, she was immediately started on BiPAP with a quick recover. Initial ABG: pH 7.10, pCO2 98, pO2 57. repeat ABg after BIPAP FiO2 100%, 07/22 showed pH 7.33 , pCo2 64, pO2 120. Paty nowak is alert and oriented 3 and answering all questions. She has been dealing with cough of brownish productive sputum, fever, chills, and progressive shortness of breath for at least 3 weeks. All her symptoms worsen within the past week and she noticed worsening of her LE edema. No hemoptysis. No headaches. No abdominal pain. No urinary complaints. No syncope. No focal deficits. Past Med Surg Social Fam HX - Past Medical History Medical history: asthma, CHF, diabetes, myocardial infarction Psychiatric history: no psych history - Past Surgical History Surgical History: angioplasty/stent, carotid endarterectomy, other, vascular surgery - Social History Smoking Status: Current every day smoker Smokeless Tobacco Status: No Alcohol use: unknown Drug use: unknown - Family History Mother Adopted: No Family Member Ethnicity: Non- Living Status: Hx Family Cardiac Disorders: Yes Hx Family Respiratory Disorders: No Hx Family Cancer: Yes Hx Family GI Disorders: No Hx Family Endocrine Disorder: Yes Hx Family Neuromuscular Disorders: Yes Hx Family Neurologic Disorders: No Hx Family HEENT Disorders: No Hx Family Autoimmune Disorders: No Brother Living Status: Still Living Hx Family Cardiac Disorders: Yes (Triple bypass) Father Adopted: No Family Member Ethnicity: Non- Living Status: Hx Family Cardiac Disorders: Yes (SD) Hx Family Respiratory Disorders: No Hx Family Cancer: No Hx Family GI Disorders: No Hx Family Endocrine Disorder: No Hx Family Neuromuscular Disorders: No Hx Family Neurologic Disorders: No Hx Family HEENT Disorders: No Hx Family Autoimmune Disorders: No Internal Medicine - H&P: Meds Metoprolol XL (24 HR) Succ [Toprol XL] 100 mg PO DAILY #30 tab.er.24h 04/26/15 [ Rx] Metformin [Glucophage] 1,000 mg PO BID 05/21/15 [History] Isosorbide MONOnitrate (24 HR) [Imdur] 120 mg PO DAILY 30 Days 11/08/15 [Rx] Atorvastatin [Lipitor] 40 mg PO HS #30 tablet 03/28/16 [Rx] Furosemide [Lasix] 40 mg PO BID 06/01/16 [History] Ondansetron [Zofran] 8 mg PO DAILY 06/01/16 [History] Potassium Chloride [K-Tab ER] 10 meq PO BID 06/01/16 [History] Clopidogrel [Plavix] 75 mg PO DAILY 10/01/16 [History] Fenofibrate [Lofibra] 160 mg PO DAILY 10/01/16 [History] Gabapentin [Gabapentin] 800 mg PO TID 10/01/16 [History] GlipiZIDE [Glipizide] 10 mg PO BID 10/01/16 [History] LORazepam [Ativan] 0.5 mg PO Q8H PRN 10/01/16 [History] Lisinopril [Zestril] 20 mg PO DAILY 10/01/16 [History] Nitroglycerin [Nitrostat] 0.4 mg PO AD PRN 10/01/16 [History] Oxycodone HCl [Oxycodone HCl] 10 mg PO TID PRN 10/01/16 [History] Oxycodone HCl [Oxycodone HCl] 20 mg PO HS 10/01/16 [History] Allergies No Known Allergies Allergy (Verified 07/30/16 21:39) All Systems PM: A 10-system review of systems was performed and is negative for pertinent findings except as documented above in the HPI. - Constitutional Vitals: Temp Pulse Resp BP Pulse Ox 97.6 F 107 26 159/71 100 10/01/16 07:34 10/01/16 08:49 10/01/16 08:49 10/01/16 08:49 10/01/16 08:49 General appearance: Present: cooperative, mild distress, A&O X 3, pleasant, answers questions appropriately - Eye Eye exam: Present: PERRL, sclera anicteric - ENT ENT exam: Present: mucous membranes dry - Respiratory Respiratory exam: Present: decreased breath sounds (at right lower lung field.) , wheezes (diffuse mild wheezes). Absent: rales - Cardiovascular Cardiovascular exam: Present: tachycardia - GI/Abdominal GI/Abdominal exam: Present: normal bowel sounds, soft. Absent: distended, tenderness - Extremities Exam Extremities exam: Present: pedal edema - Back Exam Back exam: Absent: CVA tenderness (L), CVA tenderness (R) - Neurological Exam Neurological exam: Present: alert, oriented X3, no focal deficits. Absent: facial droop, speech deficit - Skin Additional comments: right chronic ulcer on anterior nowak area cutaneous candidiasis at inguinal areas. Internal Med - H&P Results - Labs CBC & Chem 7: 10/01/16 07:30 10/01/16 07:52
[2016-10-01 09:19] LABS: Bilirubin,Urine Negative (Negative); Blood,Urine Trace-lysed (Negative); Clarity,Urine Clear (Clear); Color,Urine Yellow (Yellow); Glucose,Urine (UA) 500 mg/dL (Normal); Ketones,Urine Negative (Negative); Leukocyte Esterase,Urine Negative (Negative); Nitrite,Urine Negative (Negative); PH,Urine 6.5 pH Units (5.0-8.0); Protein,Urine 100 mg/dL (Neg-Trace); Urobilinogen,Urine Normal (Normal)
[2016-10-01 09:21] LABS: Bacteria,Urine None Seen per hpf (None-Few); Hyaline Casts,Urine None Seen per lpf (None-Few); RBC,Urine 0-3 per hpf (0-3); Squamous Epithelial Cell,Urine Many per lpf (None-Few); WBC,Urine 0-3 per hpf (0-3)
[2016-10-01] MEDS: Ipratropium/Albuterol Neb 3 ML IH SCH ×4 (11:05→19:40)
[2016-10-01] MEDS: Pantoprazole 40 MG VIAL IVP SCH (11:16)
[2016-10-01] MEDS: *HR* Morphine 2 MG/ML SYRINGE IVP PRN ×2 (12:49→23:52)
[2016-10-01] MEDS ORDERED: *HR* Dextrose 50 % in Water (Syg) 50 ML SYRINGE IVP PRN (12:58)
[2016-10-01] MEDS ORDERED: Dextrose Gel 15 GM PO PRN ×2 (12:58)
[2016-10-01] MEDS ORDERED: D5% in Water 1,000 ML IV PRN (12:58)
[2016-10-01] MEDS: Isosorbide MONOnitrate (24 HR) 60 MG TAB.ER.24H PO SCH (14:02)
[2016-10-01] MEDS: Metoprolol XL (24 HR) Succ 50 MG TAB.ER.24H PO SCH (14:02)
[2016-10-01] MEDS: Lisinopril 20 MG TABLET PO SCH (14:02)
[2016-10-01] MEDS: Insulin LISPRO 300 UNITS/3 ML VIAL SQ SCH ×3 (14:04→20:51)
[2016-10-01 16:18] LABS: BUN/Creatinine Ratio 17 (6-26); Blood Urea Nitrogen 14 mg/dL (7-20); Calcium 9.1 mg/dL (8.6-10.8); Carbon Dioxide 31 mEq/L (19-29); Chloride 96 mEq/L (98-109); Glucose 288 mg/dL (70-99); Osmolality,Calculated 297 (280-300); Potassium 3.9 mEq/L (3.5-4.5); Sodium 138 mEq/L (136-145); eGFR For African Americans > 60 (> 60); eGFR For Non-African Americans > 60 (> 60)
[2016-10-01] MEDS ORDERED: Furosemide 40 MG TABLET PO SCH (17:00)
[2016-10-01] MEDS: *HR* OxyCODONE Immed Rel 5 MG TABLET PO PRN (17:15)
[2016-10-01] MEDS: Furosemide 40 MG/4 ML VIAL IVP SCH (17:16)
[2016-10-01] MEDS ORDERED: Vancomycin 1,750 MG in D5% in Water 500 ML IVPB SCH (20:00)
[2016-10-01] MEDS: *HR* LORazepam 0.5 MG TABLET PO PRN (20:33)
[2016-10-02] MEDS: Ipratropium/Albuterol Neb 3 ML IH SCH ×7 (00:10→23:39)
[2016-10-02] MEDS: *HR* OxyCODONE Immed Rel 5 MG TABLET PO PRN ×2 (05:11→16:54)
[2016-10-02 06:22] LABS: Basophils % 0.3 %; Eosinophils # 0.2 K/mcL (0.0-0.6); Eosinophils % 1.4 %; Hematocrit 27.4 % (35.3-44.9); Hemoglobin 8.3 g/dL (11.5-15.4); Immature Granulocytes % 0.5 % (0-4); Lymphocytes # 2.2 K/mcL (0.6-4.6); Lymphocytes % 16.5 %; Mean Corpuscular HGB Conc 30.3 g/dL (31.6-35.5); Mean Corpuscular Hemoglobin 24.4 pg (28.0-33.3); Mean Corpuscular Volume 80.6 fL (83.0-100.0); Mean Platelet Volume 9.7 fL (9.4-12.4); Monocytes # 0.9 K/mcL (0.0-1.3); Monocytes % 6.4 %; Platelet Count 310 K/mcL (140-400); Red Cell Distribution Width 15.9 % (11.5-14.5); Segmented Neutrophils % 74.9 %
[2016-10-02 06:38] LABS: Alanine Aminotransferase 26 Units/L (0-55); Albumin 2.6 g/dL (3.5-5.0); Albumin/Globulin Ratio 0.7 (1.1-2.2); Alkaline Phosphatase 73 Units/L (38-126); Aspartate Amino Transferase 26 Units/L (5-34); BUN/Creatinine Ratio 20 (6-26); Bilirubin,Total 0.3 mg/dL (0.2-1.2); Blood Urea Nitrogen 20 mg/dL (7-20); Calcium 8.7 mg/dL (8.6-10.8); Carbon Dioxide 28 mEq/L (19-29); Chloride 96 mEq/L (98-109); Globulin 3.6 g/dL (2.4-3.5); Glucose 285 mg/dL (70-99); Magnesium 1.4 mg/dL (1.6-2.6); Osmolality,Calculated 297 (280-300); Phosphorous 3.7 mg/dL (2.3-4.7); Potassium 4.2 mEq/L (3.5-4.5); Sodium 137 mEq/L (136-145); Total Protein 6.2 g/dL (6.0-8.3); eGFR For African Americans > 60 (> 60); eGFR For Non-African Americans 57 (> 60)
[2016-10-02] MEDS: Isosorbide MONOnitrate (24 HR) 60 MG TAB.ER.24H PO SCH (07:53)
[2016-10-02] MEDS: Insulin LISPRO 300 UNITS/3 ML VIAL SQ SCH ×3 (07:53→16:52)
[2016-10-02] MEDS: Metoprolol XL (24 HR) Succ 50 MG TAB.ER.24H PO SCH (07:53)
[2016-10-02] MEDS: Lisinopril 20 MG TABLET PO SCH (07:53)
[2016-10-02] MEDS: Furosemide 40 MG/4 ML VIAL IVP SCH (07:54)
[2016-10-02] MEDS ORDERED: Vancomycin 1,250 MG in D5% in Water 250 ML IVPB SCH (08:00)
[2016-10-02] MEDS: Pantoprazole 40 MG VIAL IVP SCH (08:17)
[2016-10-02] MEDS ORDERED: Levofloxacin 500 MG/100 ML 500 MG/100 ML BAG IVPB SCH (09:00)
[2016-10-02] MEDS: Magnesium Sulfate 3 GM in D5% in Water 100 ML IVPB STA ×2 (09:09→11:45)
[2016-10-02] MEDS ORDERED: Aminoglycoside Consult 1 EACH MC ONE (09:30)
--- NOTE | 2016-10-02 11:06 | Cardiology Consult Note ---
<Jessica Caldwell - Last Filed: 10/02/16 11:21> Date of Encounter: 10/02/16 Time of Encounter: 10:50 Assessment and Plan (1) Elevated troponin Current Visit: No Status: Acute Peak troponin 1.54 in the setting of acute respiratory failure,sepsis, and acute anemia; likely demand ischemia. Lactic acid=5.8 upon admission, WBC 25.7. She denies chest pain/discomfort or anginal equivalent. Last [facility] 03/2016--s/p DENISSE to pLAD; she will require uninterrupted DAPT (asa + plavix) for at least 1 year. Start asa now. Monitor H/H closely. Continue betablocker, ACEi, statin, and long-acting nitrate. EF preserved per TTE, 60% in 05/2016. No further inpatient cardiology recommendations, continue supportive care for sepsis, PNA. Appt scheduled with [facility] in a few weeks. (2) Acute respiratory failure with hypoxia and hypercapnia Current Visit: Yes Status: Acute Improving, likely secondary to PNA. Mgmt per primary service. (3) Tobacco abuse Current Visit: No Status: Chronic Continues to smoke 1+ ppd, counseling provided on cessation. Time spent=5 minutes. Discussion w patient/family: The assessment and plan as outlined above was discussed with the patient and/or family members who expressed understanding and agreement. All questions were answered. Thank you for involving us in the care of your patient. Please call with any questions. The patient will be discussed and reviewed with Dr. Brady; changes to be made accordingly. History of Present Illness Consult date: 10/02/16 Requesting physician: Jess Watson Consult reason: Elevated troponin Chief complaint: Shortness of breath History of present illness: Ms. Nieves is a 65 year old female with PMH significant for CAD s/p PCI, PAD s/p LE intervention (follows with Dr. Ring) , poorly controlled DMII, HTN, HLD, COPD, and tobacco use who presented to the ED with a 2 week history of worsening shortness of breath at rest. She states that she has increased utilization of home oxygen at home prior to admission, she states she felt like she had pneumonia. She denies chest pain or discomfort, syncope, dizziness, nausea or vomiting. Recent CV testing includes: TTE 06/02/16: EF 60%, mild cLVH, normal wall motion. LHC 03/26/16: successful PTCA/DENISSE to proximal LAD, patent RCA stent, small 99 % R PDA; otherwise non-obstructive CAD. MATEUS 03/06/16: LVEF 60% TTE 12/09/15: LVEF 60-65%, no significant valvular dysfunction, normal wall motion [facility] 12/08/15: PTCA/BMS to mid LAD; otherwise stents patent from a previous procedure. CUS 10/24/15: LICA severe 60-99%, TRISTON moderate stenosis (s/p bilateral endartectomy) [facility] 08/13/15: PTCA/DENISSE proximal, mid, and distal RCA Regadenoson nuclear 06/12/15: perfusion negative for ischemia or infarct Past Med Surg Social Fam HX - Past Medical History Attestation: Yes The following information was validated with the patient. Medical history: asthma, COPD, coronary artery disease, DVT, diabetes, hyperlipidemia, hypertension, myocardial infarction Psychiatric history: no psych history - Past Surgical History Surgical History: angioplasty/stent, carotid endarterectomy, vascular surgery - Social History Smoking Status: Current every day smoker Packs per day: 1 Smokeless Tobacco Status: No Alcohol use: unknown Drug use: unknown - Family History Mother History Unknown: Yes Adopted: No Family Member Ethnicity: Non- Living Status: Hx Family Cardiac Disorders: Yes Hx Family Respiratory Disorders: No Hx Family Cancer: Yes Hx Family GI Disorders: No Hx Family Endocrine Disorder: Yes Hx Family Neuromuscular Disorders: Yes Hx Family Neurologic Disorders: No Hx Family HEENT Disorders: No Hx Family Autoimmune Disorders: No Brother Living Status: Still Living Hx Family Cardiac Disorders: Yes (Triple bypass) Father History Unknown: Yes Adopted: No Family Member Ethnicity: Non- Living Status: Hx Family Cardiac Disorders: Yes (ND) Hx Family Respiratory Disorders: No Hx Family Cancer: No Hx Family GI Disorders: No Hx Family Endocrine Disorder: No Hx Family Neuromuscular Disorders: No Hx Family Neurologic Disorders: No Hx Family HEENT Disorders: No Hx Family Autoimmune Disorders: No Medications and Allergies Metoprolol XL (24 HR) Succ [Toprol XL] 100 mg PO DAILY #30 tab.er.24h 04/26/15 [ Rx] Metformin [Glucophage] 1,000 mg PO BID 05/21/15 [History] Isosorbide MONOnitrate (24 HR) [Imdur] 120 mg PO DAILY 30 Days 11/08/15 [Rx] Atorvastatin [Lipitor] 40 mg PO HS #30 tablet 03/28/16 [Rx] Furosemide [Lasix] 40 mg PO BID 06/01/16 [History] Ondansetron [Zofran] 8 mg PO DAILY 06/01/16 [History] Potassium Chloride [K-Tab ER] 10 meq PO BID 06/01/16 [History] Clopidogrel [Plavix] 75 mg PO DAILY 10/01/16 [History] Fenofibrate [Lofibra] 160 mg PO DAILY 10/01/16 [History] Gabapentin [Gabapentin] 800 mg PO TID 10/01/16 [History] GlipiZIDE [Glipizide] 10 mg PO BID 10/01/16 [History] LORazepam [Ativan] 0.5 mg PO Q8H PRN 10/01/16 [History] Lisinopril [Zestril] 20 mg PO DAILY 10/01/16 [History] Nitroglycerin [Nitrostat] 0.4 mg PO AD PRN 10/01/16 [History] Oxycodone HCl [Oxycodone HCl] 10 mg PO TID PRN 10/01/16 [History] Oxycodone HCl [Oxycodone HCl] 20 mg PO HS 10/01/16 [History] Allergies No Known Allergies Allergy (Verified 07/30/16 21:39) All Systems Review: A 10-system review of systems was performed and is negative for pertinent findings except as documented above in the HPI. - Cardiovascular Cardiovascular: as per HPI Physical Examination Vital Signs, Last 4 Hours Temp Pulse Resp BP Pulse Ox 10/02/16 11:03 18 100 10/02/16 10:47 97.9 F 71 16 129/56 98 10/02/16 08:18 78 10/02/16 07:35 16 96 10/02/16 07:21 98.4 F 75 16 141/54 95 General: Conversant, No Apparent Distress HEENT: Atraumatic, Normocephaly, Mucus Membranes Moist Cardiac: Reg Rate and Rhythm, Normal S1 and S2 Lungs: Other (diminished, coarse. ) Neuro: Alert and responsive Abdomen: Soft Skin: No rashes noted on visualized skin Musculoskeletal: No Chest Wall Tenderness Extremities: Other (pre-tibial edema BLE) Results 10/02/16 05:57 10/02/16 05:57 Lab Results 10/01/16 10/01/16 10/02/16 15:55 15:55 05:57 WBC 13.4 H Hgb 8.3 L D Hct 27.4 L Plt Count 310 Sodium 138 Potassium 3.9 Chloride 96 L Carbon Dioxide 31 H BUN 14 Creatinine 0.84 Glucose 288 H Calcium 9.1 Magnesium 1.2 L Total Bilirubin AST ALT Alkaline Phosphatase Troponin I B-Natriuretic Peptide 10/02/16 10/02/16 10/02/16 05:57 05:57 05:57 WBC Hgb Hct Plt Count Sodium 137 Potassium 4.2 Chloride 96 L Carbon Dioxide 28 BUN 20 Creatinine 0.98 Glucose 285 H Calcium 8.7 Magnesium 1.4 L Total Bilirubin 0.3 AST 26 ALT 26 Alkaline Phosphatase 73 Troponin I 1.54 H* B-Natriuretic Peptide 524 H Active Medications Acetaminophen (Tylenol) 650 mg PO Q6HR PRN PRN Reason: Mild Pain (1-3) Stop: 04/02/17 08:58 Albuterol Sulfate (Proventil Neb) 2.5 mg IH [id number] PRN; Protocol PRN Reason: Shortness Of Breath/Wheezing Stop: 04/02/17 09:04 Albuterol/Ipratropium (Duoneb) 3 ml IH [id number] JANIE PRN Reason: Protocol Stop: 04/02/17 11:01 Last Admin: 10/02/16 11:02 Dose: 3 ml Atorvastatin Calcium (Lipitor) 40 mg PO HS JANIE Stop: 04/02/17 21:01 Last Admin: 10/01/16 20:33 Dose: 40 mg Clopidogrel Bisulfate (Plavix) 75 mg PO DAILY JANIE Stop: 04/02/17 13:01 Last Admin: 10/02/16 07:53 Dose: 75 mg Dextrose/Water (Dextrose 50% (Syg)) 25 ml IVP AD PRN PRN Reason: Hypoglycemia Stop: 04/02/17 12:59 Furosemide (Lasix) 40 mg IVP BIDDIURETIC JANIE Stop: 04/02/17 17:01 Last Admin: 10/02/16 07:54 Dose: 40 mg Levofloxacin/Dextrose (Levaquin 500mg/100ml) 500 mg in 100 mls @ 100 mls/hr IVPB Q24H JANIE PRN Reason: Protocol Stop: 04/03/17 09:01 Last Admin: 10/02/16 07:54 Dose: 100 mls/hr Dextrose (Dextrose 5%) 1,000 mls @ 100 mls/hr IV CONT PRN PRN Reason: HYPOGLYCEMIA Stop: 04/02/17 12:59 Vancomycin HCl 1,250 mg/ (Dextrose) 250 mls @ 167.007 mls/hr IVPB Q12H JANIE PRN Reason: Protocol Stop: 04/02/17 20:01 Insulin Human Lispro (Humalog) 0 units SQ TIDAC JANIE PRN Reason: Protocol Stop: 04/02/17 14:01 Last Admin: 10/02/16 07:53 Dose: 8 units Insulin Human Lispro (Humalog) 0 units SQ HS JANIE PRN Reason: Protocol Stop: 04/02/17 21:01 Last Admin: 10/01/16 20:51 Dose: 300 units Isosorbide Mononitrate (Imdur) 120 mg PO DAILY [facility] Stop: 04/02/17 13:01 Last Admin: 10/02/16 07:53 Dose: 120 mg Lisinopril (Zestril) 20 mg PO DAILY JANIE PRN Reason: Protocol Stop: 04/02/17 13:01 Last Admin: 10/02/16 07:53 Dose: 20 mg Lorazepam (Ativan) 0.5 mg PO Q8H PRN PRN Reason: Anxiety Stop: 04/02/17 13:00 Last Admin: 10/01/16 20:33 Dose: 0.5 mg Metoprolol Succinate (Toprol Xl) 100 mg PO DAILY [facility] Stop: 04/02/17 13:01 Last Admin: 10/02/16 07:53 Dose: 100 mg Morphine Sulfate (Morphine Sulfate) 1 mg IVP Q4HR PRN PRN Reason: Severe Pain (7-10) Stop: 04/02/17 08:58 Last Admin: 10/01/16 23:52 Dose: 1 mg Naloxone HCl (Narcan) 0.4 mg IVP Q2MIN PRN PRN Reason: Opioid Reversal Stop: 04/02/17 08:58 Ondansetron HCl (Zofran) 4 mg IVP Q8HR PRN PRN Reason: Nausea And Vomiting Stop: 04/02/17 08:58 Oxycodone HCl (Roxicodone) 10 mg PO Q8HR PRN PRN Reason: Pain Stop: 04/02/17 13:01 Last Admin: 10/02/16 05:11 Dose: 10 mg Pantoprazole Sodium (Protonix) 40 mg IVP DAILY JANIE Stop: 04/02/17 09:01 Last Admin: 10/02/16 08:17 Dose: [address] 10/01/16 15:00 IMPRESSION: 1. Small bilateral pleural effusions with mild bilateral lobe airspace consolidation, most likely passive atelectasis, however, aspiration or pneumonia cannot be excluded. 2. Mildly enlarged heterogeneous appearance of the thyroid gland with a small 4 mm nodule within the right thyroid lobe. Recommend a non urgent follow-up thyroid ultrasound for further characterization, as recommended below. 3. Diffuse idiopathic skeletal hyperostosis. - Imaging and Cardiology Stress Test: report reviewed Echo: report reviewed Cardiac cath: report reviewed Other Results: 12 hour tele: avg HR=77 SR. No significant event noted. - EKG Interpretation EKG results cardiology: personally reviewed Consult Discharge Plan - Plan Referrals: Luis Ron MD [Primary Care Provider] - 10/11/16 1:20 pm Zara Brady DO [Partnered Physician] - 10/18/16 1:00 pm <Zara Brady - Last Filed: 10/02/16 14:03> Date of Encounter: 10/02/16 Assessment and Plan Discussion w patient/family: The assessment and plan as outlined above was discussed with the patient and/or family members who expressed understanding and agreement. All questions were answered. Thank you for involving us in the care of your patient. Please call with any questions. History of Present Illness History of present illness: Ms. Nieves is a 65 year old female All Systems Review: A 10-system review of systems was performed and is negative for pertinent findings except as documented above in the HPI. Physical Examination Vital Signs, Last 4 Hours Temp Pulse Resp BP Pulse Ox 10/02/16 11:03 70 18 100 10/02/16 10:47 97.9 F 71 16 129/56 98 Results 10/02/16 05:57 10/02/16 05:57 Lab Results 10/01/16 10/01/16 10/02/16 15:55 15:55 05:57 WBC 13.4 H Hgb 8.3 L D Hct 27.4 L Plt Count 310 Sodium 138 Potassium 3.9 Chloride 96 L Carbon Dioxide 31 H BUN 14 Creatinine 0.84 Glucose 288 H Calcium 9.1 Magnesium 1.2 L Total Bilirubin AST ALT Alkaline Phosphatase Troponin I B-Natriuretic Peptide 10/02/16 10/02/16 10/02/16 05:57 05:57 05:57 WBC Hgb Hct Plt Count Sodium 137 Potassium 4.2 Chloride 96 L Carbon Dioxide 28 BUN 20 Creatinine 0.98 Glucose 285 H Calcium 8.7 Magnesium 1.4 L Total Bilirubin 0.3 AST 26 ALT 26 Alkaline Phosphatase 73 Troponin I 1.54 H* B-Natriuretic Peptide 524 H - Attending Attestation I examined this patient and my medical decision-making was reviewed with the STRESS ANALYST/PA/Advanced Practice Nurse/Resident Physician. I agree with the documented findings, disposition and treatment plan. Ms. Nieves presents with elevated troponin in setting of respiratory failure, possibly sepsis and acute anemia. WBCs and lactate elevated. Troponin elevation does not appear related to an acute coronary syndrome. She is chest pain free. ECGs do not reveal any new findings. In fact, degree of ST abnormalities appear somewhat improved. For now, we recommend continuing antiplatelet therapy with careful watch on blood count. She will remain on BB, statin and NTG. Will follow.
--- NOTE | 2016-10-02 11:22 | Electrocardiograph Report ---
[place] [id number] Test Date: 2016-10-01 Pat Name: Zara Nieves Department: 104 Room: 2N10 Gender: F Electronic Bench Technician: : 1950 Requested By: Magy See Order Number: [id number] Reading MD: Patrick Steward DO Measurements Intervals [place] Rate: 126 P: 87 MI: 153 QRS: 9 QRSD: 89 T: 94 QT: 300 QTc: 375 Interpretive Statements SINUS TACHYCARDIA WITH OCCASIONAL VENTRICULAR PREMATURE COMPLEXES NONSPECIFIC ST \T\ T-WAVE ABNORMALITY Electronically Signed On 10-02-2016 11:21:07 EST by Patrick Steward DO
[2016-10-02] MEDS: Aspirin Enteric Coated 81 MG Tablet PO SCH (11:46)
--- NOTE | 2016-10-02 13:37 | Internal Med Progress Note ---
Date of Encounter: 10/02/16 Time of Encounter: 10:00 - Assessment and plan (1) COPD exacerbation Current Visit: Yes Status: Acute Assessment and plan: Will continue antibiotic, steroid, and bronchodilator treatment. Symptoms has improved after treatment. (2) Acute respiratory failure with hypoxia and hypercapnia Current Visit: Yes Status: Acute Assessment and plan: Due to COPD exacerbation. Will treat underlying disease (3) Congestive heart failure Current Visit: Yes Status: Acute Assessment and plan: Stable, continue home medications Qualifiers: Congestive heart failure type: diastolic Congestive heart failure chronicity: chronic Qualified Code(s): I50.32 - Chronic diastolic (congestive ) heart failure (4) DVT prophylaxis Current Visit: No Status: Acute Assessment and plan: Heparin subcutaneously (5) Diabetes Current Visit: No Status: Acute Assessment and plan: Continue sliding-scale coverage Qualifiers: Diabetes mellitus type: type 2 Diabetes mellitus complication detail: with diabetic retinopathy Diabetic retinopathy severity: with unspecified retinopathy severity Diabetes mellitus macular edema: without macular edema Diabetes mellitus halfway insulin use: without halfway use Laterality: unspecified laterality Qualified Code(s): E11.319 - Type 2 diabetes mellitus with unspecified diabetic retinopathy without macular edema (6) Elevated troponin Current Visit: No Status: Acute Assessment and plan: Patient had no chest pain, cardiology consult saw Patient, considered demand ischemia. (7) CAD (coronary artery disease) Current Visit: No Status: Chronic Assessment and plan: Patient has stenting time recently. Continue aspirin and Plavix. Continue beta thao and atorvastatin Qualifiers: Coronary Disease-Associated Artery/Lesion type: grayling artery [place] vs. transplanted heart: grayling heart Associated angina: with stable angina Qualified Code(s): I25.118 - Atherosclerotic heart disease of grayling coronary artery with other forms of angina pectoris - Time Spent With Patient 25 - 35 minutes - Subjective Interval history: Patient is a 65-year-old female admitted for COPD exacerbation. Her past medical history is significant for COPD, CHF, diabetes, CAD S/P stent. Patient was seen and examined. Patient is awake alert, oriented 3. Shortness of breath has significantly improved after treatment. No chest pain. Patient is in no acute respiratory distress when saw her. Elevated troponin, cardio consult was called and saw patient, considered demand ischemia, no further cardiology workup need. Will continue antibiotic, steroid, and bronchodilator treatment. Patient refuse IV today, we will change antibiotic to by mouth. - Constitutional Vitals: Temp Pulse Resp BP Pulse Ox 97.9 F 70 18 129/56 100 10/02/16 10:47 10/02/16 11:03 10/02/16 11:03 10/02/16 10:47 10/02/16 11:03 General appearance: Present: cooperative, mild distress, A&O X 3, pleasant, answers questions appropriately - Head Head exam: Present: atraumatic, normocephalic - Eye Eye exam: Present: PERRL, conjuntiva pink, sclera anicteric Pupils: Present: PERRL - Neck Neck exam general surgery: Present: supple, trachea midline. Absent: lymphadenopathy - Respiratory Respiratory exam: Present: CTAB, wheezes (Scattered wheezes bilaterally). Absent: accessory muscle use, rales, rhonchi - Cardiovascular Cardiovascular exam: Present: RRR, +S1, +S2. Absent: diastolic murmur, gallop, rubs, systolic murmur - GI/Abdominal GI/Abdominal exam: Present: normal bowel sounds, soft, no peritoneal signs. Absent: distended, tenderness - Extremities Exam Extremities exam: Present: warm, radial pulses palpable and symetrical. Absent : calf tenderness, cyanotic, pedal edema - Neurological Exam Neurological exam: Present: CN II-XII intact, oriented X3, no focal deficits. Absent: pronater drift, facial droop, speech deficit - Skin Skin exam: Present: dry, intact Internal Medicine: Result - Labs CBC & Chem 7: 10/02/16 05:57 10/02/16 05:57 Labs: Short CBC 10/02/16 Range/Units 05:57 WBC 13.4 H (4.3-11.1) K/mcL Hgb 8.3 L D (11.5-15.4) g/dL Hct 27.4 L (35.3-44.9) % Plt Count 310 (140-400) K/mcL Neutrophils # 10.0 H (1.6-8.9) K/mcL BMP 10/01/16 10/02/16 15:55 05:57 Sodium 138 137 Potassium 3.9 4.2 Chloride 96 L 96 L Carbon Dioxide 31 H 28 BUN 14 20 Creatinine 0.84 0.98 Glucose 288 H 285 H Calcium 9.1 8.7 Cardiac Enzymes 10/02/16 Range/Units 05:57 Troponin I 1.54 H* (0-0.03) ng/mL Liver Function 10/02/16 Range/Units 05:57 Total Bilirubin 0.3 (0.2-1.2) mg/dL AST 26 (5-34) Units/L ALT 26 (0-55) Units/L Alkaline Phosphatase 73 (38-126) Units/L Albumin 2.6 L (3.5-5.0) g/dL - ABG Interpretation ABG results: ABG ABG pH 7.33 pH Units (7.32-7.45) D 10/01/16 08:18 ABG pCO2 64 mmHg (35-45) H D 10/01/16 08:18 ABG pO2 120 mmHg (85-104) H 10/01/16 08:18 ABG O2 Saturation 98 % (95-98) 10/01/16 08:18 PT/INR, D-dimer PT 13.4 Seconds (9.4-12.1) H 10/01/16 07:52 - Impressions Impressions Chest CT 10/01/16 15:00 IMPRESSION: 1. Small bilateral pleural effusions with mild bilateral lobe airspace consolidation, most likely passive atelectasis, however, aspiration or pneumonia cannot be excluded. 2. Mildly enlarged heterogeneous appearance of the thyroid gland with a small 4 mm nodule within the right thyroid lobe. Recommend a non urgent follow-up thyroid ultrasound for further characterization, as recommended below. 3. Diffuse idiopathic skeletal hyperostosis. RECOMMENDATIONS: Managing Incidental Thyroid Nodule Detected at CT or MRI or US 1. Further evaluation by thyroid Ultrasound recommended for these incidental nodules: Patient Age 18 years or less - Any nodule. Patient Age 19-34 years old - Nodule 1 cm in size or greater Patient Age 35 years or more - Nodule 1.5 cm in size or greater 2. Follow up thyroid ultrasound also recommend in these scenarios -Solitary nodule with high risk imaging features (locally invasive nodule or suspicious lymph nodes) -ANY NODULE IN A HETEROGENEOUS ENLARGED THYROID GLAND 3. NO further imaging is recommended in the following scenarios -No f/u imaging is recommended for ITNs not meeting the above criteria. -No US or f/u recommended for ITNs without high risk features in pts. with limited life expectancy or significant co-morbidities, unless clinically warranted. Note: These recommendations do not apply to pts. w/ increased risk for thyroid cancer or pts. with symptomatic thyroid disease. Recommendations for f/u of Incidental Thyroid Nodules (ITN) found on CT, MR, NM and Extrathyroidal US are based upon the ACR white paper and Hale 3-tiered system for managing ITNs: J Am Marcy Radiol. 2015 Sep;12(2): 143-50 D/ / 10/01/2016 13:37:15 Willie March MD / diogenes Interpreting Provider: Willie March MD Consult Discharge Plan - Plan Referrals: Luis Ron MD [Primary Care Provider] - 10/11/16 1:20 pm Zara Brady DO [Partnered Physician] - 10/18/16 1:00 pm
[2016-10-02] MEDS: predniSONE 20 MG TABLET PO SCH (14:07)
--- NOTE | 2016-10-02 15:50 | ECHO - Doppler Report ---
Echocardiogram Name: Zara Nieves Date of Study: 10/01/2016 Date: 1950 Ht: 64.0 in Medical Record#: [id number] Age: 65 Wt: 225.0 lb Gender: Female BSA: 2.06 Order #: [id number] Location: [facility] Room #: 2N10 Reading Physician: Zara Brady DO Stitching Machine Feeder Or Offbearer: Abbie España Ordering Physician: Celina Helms MD Primary Physician: Luis Ron MD Indications: Acute congestive heart failure Impressions: LVEF 55%. Normal left ventricular size and systolic function. There is evidence of moderate diastolic dysfunction of the left ventricle. Normal right ventricular size and function. Mild mitral regurgitation. Mild pulmonary hypertension. Left Ventricular Wall Motion: Rest Echo Findings All wall segments showed normal motion. Findings: Study Quality * Technically adequate exam. ECG Findings * Normal sinus rhythm. Left Ventricle * Normal LV chamber size, wall thickness and function. * Moderate left ventricular diastolic dysfunction. * LVEF 55%. Mitral Valve * Mild mitral annular calcification * No mitral stenosis. * Mild mitral regurgitation. * Mildly calcified mitral valve leaflets. Aortic Valve * No aortic regurgitation. * Trileaflet aortic valve. * Mildly calcified aortic valve leaflets. * No aortic stenosis. Tricuspid Valve * Tricuspid valve not well visualized. * Trace tricuspid regurgitation. * Estimated RA pressure is 3 mmHg. * Estimated RVSP is 39 mmHg. * Mild pulmonary hypertension. Pulmonic Valve * Pulmonic valve is not well visualized. * No pulmonic stenosis. * No pulmonic regurgitation. Pulmonary Artery * Pulmonary artery not well visualized. Right Ventricle * Normal right ventricular structure and function. Right Atrium * Normal right atrial size. Left Atrium * Severely dilated left atrium. Interatrial Septum * No evidence of PFO by color Doppler. IVC * The IVC is not dilated. Pericardium * There is no pericardial effusion present. Aorta * Normally sized aortic root. History Hypertension Diabetes Hypercholesteremia Rheumatic Fever History of Smoking Years 49 Packs 1 Family History of CAD History of CAD/PTCA Myocardial Infarction 06/02/2016 a Previous Echo was performed. Measurements: BP: 117/ 60 2D Normal Values IVSd: .90 cm 0.6 - 1.0 cm LVIDd: 5.20 cm 3.7 - 5.6 cm LVPWd: 1.00 cm 0.6 - 1.1 cm LVIDs: 3.40 cm 1.5 - 3.6 cm AO: 2.20 cm < 4.0 cm LA: 4.90 cm 2.0 - 4.0cm %FS: 34.60 cm >25 % LA volume: 93 Mitral Valve Peak Velocity 1.63 m/sec Mean Velocity:1.04 m/sec Peak Grad:11.00 mmHg Mean Grad:5.00 mmHg Pressure Time:57.00 msec Valve Area:3.86 cm2 Peak E:1.41 m/sec Peak A:1.23 m/sec E/A Ratio:1.1 Peak E' Lat Kapil:5.4 cm/s Peak E' Med Kapil:5.48 cm/s E/E' Lat Ratio:26.1 E/E' Med Ratio:25.7 Tricuspid Valve TV Regurg Peak Grad: 36.00mmHg TV Regurg Peak Kapil: 3.01m/sec Updated by Zara Brady on 10/02/2016 3:45:06 PM electronically signed on 10/02/2016 3:45:42 PM with status of Final Wall Motion [place]: 1=Normal, 2=Hypokinesis, 3=Akinesis, 4=Dyskinesis, 5=Aneurysmal, 6=Hyperkinetic, X=Not Visualized (Blank)=Missing
[2016-10-02] MEDS: Furosemide 20 MG TABLET PO SCH (16:51)
[2016-10-02] MEDS: *HR* Heparin 5,000 UNIT/ML VIAL SQ SCH (18:52)
[2016-10-03] MEDS: *HR* OxyCODONE Immed Rel 5 MG TABLET PO PRN ×3 (01:22→21:57)
[2016-10-03] MEDS: *HR* LORazepam 0.5 MG TABLET PO PRN (01:22)
[2016-10-03] MEDS: Insulin LISPRO 300 UNITS/3 ML VIAL SQ SCH ×4 (01:24→16:59)
[2016-10-03] MEDS: Ipratropium/Albuterol Neb 3 ML IH SCH ×5 (03:41→21:03)
[2016-10-03 05:08] LABS: Basophils % 0.2 %; Hematocrit 26.5 % (35.3-44.9); Hemoglobin 7.8 g/dL (11.5-15.4); Immature Granulocytes % 0.5 % (0-4); Lymphocytes # 1.4 K/mcL (0.6-4.6); Lymphocytes % 11.1 %; Mean Corpuscular HGB Conc 29.4 g/dL (31.6-35.5); Mean Corpuscular Hemoglobin 23.7 pg (28.0-33.3); Mean Corpuscular Volume 80.5 fL (83.0-100.0); Mean Platelet Volume 9.2 fL (9.4-12.4); Monocytes # 0.9 K/mcL (0.0-1.3); Monocytes % 6.7 %; Neutrophils # 10.5 K/mcL (1.6-8.9); Platelet Count 321 K/mcL (140-400); Red Blood Count 3.29 M/mcL (3.82-4.97); Red Cell Distribution Width 15.3 % (11.5-14.5); Segmented Neutrophils % 81.5 %
[2016-10-03 05:14] LABS: BUN/Creatinine Ratio 27 (6-26); Blood Urea Nitrogen 21 mg/dL (7-20); Calcium 8.7 mg/dL (8.6-10.8); Carbon Dioxide 31 mEq/L (19-29); Chloride 98 mEq/L (98-109); Glucose 314 mg/dL (70-99); Osmolality,Calculated 301 (280-300); Potassium 3.9 mEq/L (3.5-4.5); Sodium 138 mEq/L (136-145); eGFR For African Americans > 60 (> 60); eGFR For Non-African Americans > 60 (> 60)
[2016-10-03] MEDS: *HR* Heparin 5,000 UNIT/ML VIAL SQ SCH ×2 (06:32→22:20)
[2016-10-03] MEDS: Isosorbide MONOnitrate (24 HR) 60 MG TAB.ER.24H PO SCH (09:02)
[2016-10-03] MEDS: predniSONE 20 MG TABLET PO SCH (09:03)
[2016-10-03] MEDS: levoFLOXacin 500 MG TABLET PO SCH (09:03)
[2016-10-03] MEDS: Aspirin Enteric Coated 81 MG Tablet PO SCH (09:03)
[2016-10-03] MEDS: Furosemide 20 MG TABLET PO SCH (09:03)
[2016-10-03] MEDS: Lisinopril 20 MG TABLET PO SCH (09:03)
[2016-10-03] MEDS: Metoprolol XL (24 HR) Succ 50 MG TAB.ER.24H PO SCH (09:03)
[2016-10-03] MEDS: Pantoprazole 40 MG VIAL IVP SCH ×2 (09:06→12:02)
--- NOTE | 2016-10-03 14:21 | Internal Med Progress Note ---
Date of Encounter: 10/03/16 Time of Encounter: 09:00 - Assessment and plan (1) COPD exacerbation Current Visit: Yes Status: Acute Assessment and plan: Will continue antibiotic, steroid, and bronchodilator treatment. Symptoms has improved after treatment. (2) Acute respiratory failure with hypoxia and hypercapnia Current Visit: Yes Status: Acute Assessment and plan: Due to COPD exacerbation. Will treat underlying disease (3) Congestive heart failure Current Visit: Yes Status: Acute Assessment and plan: Stable, continue home medications Qualifiers: Congestive heart failure type: diastolic Congestive heart failure chronicity: chronic Qualified Code(s): I50.32 - Chronic diastolic (congestive ) heart failure (4) DVT prophylaxis Current Visit: No Status: Acute Assessment and plan: Heparin subcutaneously (5) Diabetes Current Visit: No Status: Acute Assessment and plan: Continue sliding-scale coverage. Glucose level is still high possibly due to steroid use. We will increase insulin dose. Qualifiers: Diabetes mellitus type: type 2 Diabetes mellitus complication detail: with diabetic retinopathy Diabetic retinopathy severity: with unspecified retinopathy severity Diabetes mellitus macular edema: without macular edema Diabetes mellitus intermediate teacher insulin use: without intermediate teacher use Laterality: unspecified laterality Qualified Code(s): E11.319 - Type 2 diabetes mellitus with unspecified diabetic retinopathy without macular edema (6) Elevated troponin Current Visit: No Status: Acute Assessment and plan: Patient had no chest pain, cardiology consult saw Patient, considered demand ischemia. (7) CAD (coronary artery disease) Current Visit: No Status: Chronic Assessment and plan: Patient has stenting time recently. Continue aspirin and Plavix. Continue beta thao and atorvastatin Qualifiers: Coronary Disease-Associated Artery/Lesion type: [place] artery [place] vs. transplanted heart: [place] heart Associated angina: with stable angina Qualified Code(s): I25.118 - Atherosclerotic heart disease of [place] coronary artery with other forms of angina pectoris - Time Spent With Patient 25 - 35 minutes - Subjective Interval history: Patient is a 65-year-old female admitted for COPD exacerbation. Her past medical history is significant for COPD, CHF, diabetes, CAD S/P stent. Patient was seen and examined. Patient is awake alert, oriented 3. Improve shortness of breath. No chest pain. Patient is in no acute respiratory distress when saw her. Still has some wheezing. Will continue antibiotic, steroid, and bronchodilator treatment. Patient refuse IV today, we will change antibiotic to by mouth. - Constitutional Vitals: Temp Pulse Resp BP Pulse Ox 98.3 F 84 20 171/83 100 10/03/16 12:00 10/03/16 12:00 10/03/16 12:00 10/03/16 12:00 10/03/16 12:00 General appearance: Present: cooperative, mild distress, A&O X 3, pleasant, answers questions appropriately - Head Head exam: Present: atraumatic, normocephalic - Eye Eye exam: Present: PERRL, conjuntiva pink, sclera anicteric Pupils: Present: PERRL - Neck Neck exam general surgery: Present: supple, trachea midline. Absent: lymphadenopathy - Respiratory Respiratory exam: Present: CTAB, wheezes (Scattered Wheezes bilaterally). Absent: accessory muscle use, rales, rhonchi - Cardiovascular Cardiovascular exam: Present: RRR, +S1, +S2. Absent: diastolic murmur, gallop, rubs, systolic murmur - GI/Abdominal GI/Abdominal exam: Present: normal bowel sounds, soft, no peritoneal signs. Absent: distended, tenderness - Extremities Exam Extremities exam: Present: warm, radial pulses palpable and symetrical. Absent : calf tenderness, cyanotic, pedal edema - Neurological Exam Neurological exam: Present: CN II-XII intact, oriented X3, no focal deficits. Absent: pronater drift, facial droop, speech deficit - Skin Skin exam: Present: dry, intact Internal Medicine: Result - Labs CBC & Chem 7: 10/03/16 04:43 10/03/16 04:43 Labs: Short CBC 10/03/16 Range/Units 04:43 WBC 12.9 H (4.3-11.1) K/mcL Hgb 7.8 L (11.5-15.4) g/dL Hct 26.5 L (35.3-44.9) % Plt Count 321 (140-400) K/mcL Neutrophils # 10.5 H (1.6-8.9) K/mcL BMP 10/03/16 04:43 Sodium 138 Potassium 3.9 Chloride 98 Carbon Dioxide 31 H BUN 21 H Creatinine 0.78 Glucose 314 H Calcium 8.7 Cardiac Enzymes 10/03/16 Range/Units 09:25 Troponin I 0.59 H* (0-0.03) ng/mL - ABG Interpretation ABG results: ABG ABG pH 7.33 pH Units (7.32-7.45) D 10/01/16 08:18 ABG pCO2 64 mmHg (35-45) H D 10/01/16 08:18 ABG pO2 120 mmHg (85-104) H 10/01/16 08:18 ABG O2 Saturation 98 % (95-98) 10/01/16 08:18 PT/INR, D-dimer PT 13.4 Seconds (9.4-12.1) H 10/01/16 07:52 Consult Discharge Plan - Plan Referrals: Luis Ron MD [Primary Care Provider] - 10/11/16 1:20 pm Zara Brady DO [Partnered Physician] - 10/18/16 1:00 pm
[2016-10-03] MEDS ORDERED: Insulin LISPRO 300 UNITS/3 ML VIAL SQ SCH (14:24)
[2016-10-04] MEDS: Ipratropium/Albuterol Neb 3 ML IH SCH ×6 (01:18→20:08)
[2016-10-04 04:07] LABS: Basophils % 0.2 %; Eosinophils # 0.1 K/mcL (0.0-0.6); Eosinophils % 0.4 %; Hematocrit 27.6 % (35.3-44.9); Hemoglobin 8.2 g/dL (11.5-15.4); Immature Granulocytes % 0.6 % (0-4); Lymphocytes # 2.7 K/mcL (0.6-4.6); Lymphocytes % 19.8 %; Mean Corpuscular HGB Conc 29.7 g/dL (31.6-35.5); Mean Corpuscular Hemoglobin 23.9 pg (28.0-33.3); Mean Corpuscular Volume 80.5 fL (83.0-100.0); Mean Platelet Volume 9.2 fL (9.4-12.4); Monocytes % 7.5 %; Neutrophils # 9.9 K/mcL (1.6-8.9); Platelet Count 343 K/mcL (140-400); Red Blood Count 3.43 M/mcL (3.82-4.97); Red Cell Distribution Width 15.3 % (11.5-14.5); Segmented Neutrophils % 71.5 %
[2016-10-04 04:20] LABS: BUN/Creatinine Ratio 28 (6-26); Blood Urea Nitrogen 19 mg/dL (7-20); Calcium 8.9 mg/dL (8.6-10.8); Carbon Dioxide 30 mEq/L (19-29); Chloride 101 mEq/L (98-109); Glucose 216 mg/dL (70-99); Osmolality,Calculated 299 (280-300); Potassium 3.8 mEq/L (3.5-4.5); Sodium 140 mEq/L (136-145); eGFR For African Americans > 60 (> 60); eGFR For Non-African Americans > 60 (> 60)
[2016-10-04] MEDS: *HR* OxyCODONE Immed Rel 5 MG TABLET PO PRN (06:37)
[2016-10-04] MEDS: Pantoprazole 40 MG VIAL IVP SCH (07:46)
[2016-10-04] MEDS: Insulin LISPRO 300 UNITS/3 ML VIAL SQ SCH ×4 (07:46→21:21)
[2016-10-04] MEDS: *HR* Heparin 5,000 UNIT/ML VIAL SQ SCH ×2 (07:46→20:30)
[2016-10-04] MEDS: levoFLOXacin 500 MG TABLET PO SCH (07:47)
[2016-10-04] MEDS: predniSONE 20 MG TABLET PO SCH (07:47)
[2016-10-04] MEDS: Isosorbide MONOnitrate (24 HR) 60 MG TAB.ER.24H PO SCH (07:47)
[2016-10-04] MEDS: Aspirin Enteric Coated 81 MG Tablet PO SCH (07:47)
[2016-10-04] MEDS: Furosemide 20 MG TABLET PO SCH (07:47)
[2016-10-04] MEDS: Lisinopril 20 MG TABLET PO SCH (07:48)
[2016-10-04] MEDS: Metoprolol XL (24 HR) Succ 50 MG TAB.ER.24H PO SCH (07:48)
[2016-10-04] MEDS: Furosemide 40 MG TABLET PO SCH ×2 (10:31→15:59)
[2016-10-04] MEDS: Gabapentin 400 MG CAPSULE PO SCH ×3 (10:31→20:30)
[2016-10-04] MEDS: amLODIPine 5 MG TABLET PO SCH (13:20)
--- NOTE | 2016-10-04 16:03 | Electrocardiograph Report ---
[place] [id number] Test Date: 2016-10-02 Pat Name: [facility] Department: 110 Room: 2N10 Gender: F Car Ferrier: : 1950 Requested By: Celina Helms Order Number: [id number] Reading MD: Kevin Bean MD Measurements Intervals [place] Rate: 75 P: 50 NH: 164 QRS: 12 QRSD: 89 T: 99 QT: 420 QTc: 448 Interpretive Statements SINUS RHYTHM NONSPECIFIC ST \T\ T-WAVE ABNORMALITY Electronically Signed On 10-04-2016 16:01:15 EST by Kevin Bean MD
--- NOTE | 2016-10-04 17:54 | Internal Med Progress Note ---
Date of Encounter: 10/04/16 Time of Encounter: 10:00 - Assessment and plan (1) COPD exacerbation Current Visit: Yes Status: Acute Assessment and plan: Will continue antibiotic, steroid, and bronchodilator treatment. Symptoms has improved after treatment. (2) Acute respiratory failure with hypoxia and hypercapnia Current Visit: Yes Status: Acute Assessment and plan: Due to COPD exacerbation. Will treat underlying disease (3) Congestive heart failure Current Visit: Yes Status: Acute Assessment and plan: Stable, continue home medications Qualifiers: Congestive heart failure type: diastolic Congestive heart failure chronicity: chronic Qualified Code(s): I50.32 - Chronic diastolic (congestive ) heart failure (4) DVT prophylaxis Current Visit: No Status: Acute Assessment and plan: Heparin subcutaneously (5) Diabetes Current Visit: No Status: Acute Assessment and plan: Continue sliding-scale coverage. Glucose level is still high possibly due to steroid use. We will increase insulin dose and taper down steroid as wheezing improved. Qualifiers: Diabetes mellitus type: type 2 Diabetes mellitus complication detail: with diabetic retinopathy Diabetic retinopathy severity: with unspecified retinopathy severity Diabetes mellitus macular edema: without macular edema Diabetes mellitus intermediate manager insulin use: without intermediate manager use Laterality: unspecified laterality Qualified Code(s): E11.319 - Type 2 diabetes mellitus with unspecified diabetic retinopathy without macular edema (6) Elevated troponin Current Visit: No Status: Acute Assessment and plan: Patient had no chest pain, cardiology consult saw Patient, considered demand ischemia. (7) CAD (coronary artery disease) Current Visit: No Status: Chronic Assessment and plan: Patient has stenting time recently. Continue aspirin and Plavix. Continue beta thao and atorvastatin Qualifiers: Coronary Disease-Associated Artery/Lesion type: [place] artery [place] vs. transplanted heart: [place] heart Associated angina: with stable angina Qualified Code(s): I25.118 - Atherosclerotic heart disease of [place] coronary artery with other forms of angina pectoris - Time Spent With Patient 25 - 35 minutes - Subjective Interval history: Patient is a 65-year-old female admitted for COPD exacerbation. Her past medical history is significant for COPD, CHF, diabetes, CAD S/P stent. Patient was seen and examined. Patient is awake alert, oriented 3. Improve shortness of breath. No chest pain. Patient is in no acute respiratory distress when saw her. Still has some wheezing. Will continue antibiotic, steroid, and bronchodilator treatment. Pt has elevated glu level, consider steroid induced hyperglycemia based on her DM. Will increase insulin dose and taper down steroid, closely monitoring. - Constitutional Vitals: Temp Pulse Resp BP Pulse Ox 98.3 F 78 17 151/65 96 10/04/16 15:22 10/04/16 15:22 10/04/16 15:35 10/04/16 15:22 10/04/16 15:35 General appearance: Present: cooperative, mild distress, A&O X 3, pleasant, answers questions appropriately - Head Head exam: Present: atraumatic, normocephalic - Eye Eye exam: Present: PERRL, conjuntiva pink, sclera anicteric Pupils: Present: PERRL - Neck Neck exam general surgery: Present: supple, trachea midline. Absent: lymphadenopathy - Respiratory Respiratory exam: Present: CTAB, wheezes (scattered wheezes b/l). Absent: accessory muscle use, rales, rhonchi - Cardiovascular Cardiovascular exam: Present: RRR, +S1, +S2. Absent: diastolic murmur, gallop, rubs, systolic murmur - GI/Abdominal GI/Abdominal exam: Present: normal bowel sounds, soft, no peritoneal signs. Absent: distended, tenderness - Extremities Exam Extremities exam: Present: warm, radial pulses palpable and symetrical. Absent : calf tenderness, cyanotic, pedal edema - Neurological Exam Neurological exam: Present: CN II-XII intact, oriented X3, no focal deficits. Absent: pronater drift, facial droop, speech deficit - Skin Skin exam: Present: dry, intact Internal Medicine: Result - Labs CBC & Chem 7: 10/04/16 03:44 10/04/16 03:44 Labs: Short CBC 10/04/16 Range/Units 03:44 WBC 13.8 H (4.3-11.1) K/mcL Hgb 8.2 L (11.5-15.4) g/dL Hct 27.6 L (35.3-44.9) % Plt Count 343 (140-400) K/mcL Neutrophils # 9.9 H (1.6-8.9) K/mcL BMP 10/04/16 03:44 Sodium 140 Potassium 3.8 Chloride 101 Carbon Dioxide 30 H BUN 19 Creatinine 0.69 Glucose 216 H Calcium 8.9 - ABG Interpretation ABG results: ABG ABG pH 7.33 pH Units (7.32-7.45) D 10/01/16 08:18 ABG pCO2 64 mmHg (35-45) H D 10/01/16 08:18 ABG pO2 120 mmHg (85-104) H 10/01/16 08:18 ABG O2 Saturation 98 % (95-98) 10/01/16 08:18 PT/INR, D-dimer PT 13.4 Seconds (9.4-12.1) H 10/01/16 07:52 Consult Discharge Plan - Plan Referrals: Luis Ron MD [Primary Care Provider] - 10/11/16 1:20 pm Zara Brady DO [Partnered Physician] - 10/18/16 1:00 pm
[2016-10-05] MEDS: Ipratropium/Albuterol Neb 3 ML IH SCH ×7 (00:25→23:40)
[2016-10-05 05:45] LABS: Basophils % 0.3 %; Eosinophils # 0.1 K/mcL (0.0-0.6); Eosinophils % 0.6 %; Hematocrit 28.2 % (35.3-44.9); Hemoglobin 8.5 g/dL (11.5-15.4); Immature Granulocytes % 0.4 % (0-4); Lymphocytes % 25.9 %; Mean Corpuscular HGB Conc 30.1 g/dL (31.6-35.5); Mean Corpuscular Hemoglobin 24.5 pg (28.0-33.3); Mean Corpuscular Volume 81.3 fL (83.0-100.0); Mean Platelet Volume 9.6 fL (9.4-12.4); Monocytes # 0.9 K/mcL (0.0-1.3); Monocytes % 7.8 %; Neutrophils # 7.6 K/mcL (1.6-8.9); Platelet Count 314 K/mcL (140-400); Red Blood Count 3.47 M/mcL (3.82-4.97); Red Cell Distribution Width 15.2 % (11.5-14.5)
[2016-10-05 05:58] LABS: BUN/Creatinine Ratio 26 (6-26); Blood Urea Nitrogen 18 mg/dL (7-20); Calcium 9.2 mg/dL (8.6-10.8); Carbon Dioxide 30 mEq/L (19-29); Chloride 101 mEq/L (98-109); Glucose 228 mg/dL (70-99); Osmolality,Calculated 301 (280-300); Potassium 3.8 mEq/L (3.5-4.5); Sodium 141 mEq/L (136-145); eGFR For African Americans > 60 (> 60); eGFR For Non-African Americans > 60 (> 60)
[2016-10-05] MEDS: Metoprolol XL (24 HR) Succ 50 MG TAB.ER.24H PO SCH (07:38)
[2016-10-05] MEDS: predniSONE 20 MG TABLET PO SCH (07:38)
[2016-10-05] MEDS: Lisinopril 20 MG TABLET PO SCH (07:38)
[2016-10-05] MEDS: Isosorbide MONOnitrate (24 HR) 60 MG TAB.ER.24H PO SCH (07:39)
[2016-10-05] MEDS: *HR* Heparin 5,000 UNIT/ML VIAL SQ SCH ×2 (07:39→19:24)
[2016-10-05] MEDS: Aspirin Enteric Coated 81 MG Tablet PO SCH (07:39)
[2016-10-05] MEDS: Furosemide 40 MG TABLET PO SCH ×2 (07:39→16:05)
[2016-10-05] MEDS: amLODIPine 5 MG TABLET PO SCH (07:39)
[2016-10-05] MEDS: Gabapentin 400 MG CAPSULE PO SCH ×3 (07:39→21:08)
[2016-10-05] MEDS: levoFLOXacin 500 MG TABLET PO SCH (07:39)
[2016-10-05] MEDS: Insulin LISPRO 300 UNITS/3 ML VIAL SQ SCH ×6 (07:40→21:10)
[2016-10-05] MEDS ORDERED: amLODIPine 5 MG TABLET PO ONE (11:00)
[2016-10-05] MEDS ORDERED: Lisinopril 20 MG TABLET PO ONE (11:15)
--- NOTE | 2016-10-05 11:18 | Internal Med Progress Note ---
Date of Encounter: 10/05/16 Time of Encounter: 11:16 - Assessment and plan (1) Acute respiratory failure with hypoxia and hypercapnia Current Visit: Yes Status: Acute Assessment and plan: Due to COPD exacerbation and Community acquired pneumonia, has since resolved. Continue O2 supplement as needed (2) CAP (community acquired pneumonia) Current Visit: Yes Status: Acute Assessment and plan: Continue Augmentin po, patient has been afebrile (3) COPD exacerbation Current Visit: Yes Status: Acute Assessment and plan: Improved, continue antibiotics, steroid, and bronchodilator treatment. (4) Congestive heart failure Current Visit: Yes Status: Acute Assessment and plan: Stable, not in exacerbation. ECHO noted, normal LVEF, continue home medications Qualifiers: Congestive heart failure type: diastolic Congestive heart failure chronicity: chronic Qualified Code(s): I50.32 - Chronic diastolic (congestive ) heart failure (5) Hypertensive urgency Current Visit: Yes Status: Acute Assessment and plan: Resolved BP however, uncontrolled Possibly due to steroid use Increased amlodipine to 10mg po daily Increase lisinopril to 40mg po daily Monitor chem Monitor closely May transfer to 2A/3A prn (6) Sepsis Current Visit: Yes Status: Acute Assessment and plan: Secondary to CAP Blood culture negative Leukocytosis improved Qualifiers: Sepsis type: sepsis due to unspecified organism Qualified Code(s): A41.9 - Sepsis, unspecified organism (7) Diabetes Current Visit: No Status: Acute Assessment and plan: Start levemir and prandial insulin Continue to taper prednisone Continue sliding-scale coverage. 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 Continue aspirin and Plavix. Continue beta thao and atorvastatin Qualifiers: Coronary Disease-Associated Artery/Lesion type: [place] artery [place] vs. transplanted heart: [place] heart Associated angina: with stable angina Qualified Code(s): I25.118 - Atherosclerotic heart disease of [place] coronary artery with other forms of angina pectoris (10) Obesity (BMI 30-39.9) Current Visit: Yes Status: Chronic (11) Tobacco abuse Current Visit: Yes Status: Chronic - Subjective Interval history: Initial encounter EMR reviewed 65 Y/O F admitted for management of Sepsis with lactic acidosis-source is PNA, Hypertensive urgency, demand ischemia, acute on chronic hypoxic and hypercapneic respiratory failure secondary to COPDE She has a PMH of chronic respiratory failure on home O2, DM, HTN, HLD, Obesity, Seen at bedside, no new complains Leukocytosis was persistent, now improving,blood pressure and blood sugars were elevated, possibly from steroids She has no new complains Plan to make adjustments to her BP medications, will discharge a.m if BP and FS are controlled She is in agreement with this plan - Constitutional Vitals: Temp Pulse Resp BP Pulse Ox 98.4 F 72 16 145/63 98 10/05/16 10:56 10/05/16 10:56 10/05/16 10:56 10/05/16 10:56 10/05/16 10:56 General appearance: Present: cooperative, A&O X 3, pleasant, no acute distress, answers questions appropriately - Head Head exam: Present: atraumatic, normocephalic - Eye Eye exam: Present: PERRL, conjuntiva pink, sclera anicteric Pupils: Present: PERRL - Neck Neck exam general surgery: Present: supple, trachea midline. Absent: lymphadenopathy - Respiratory Respiratory exam: Present: CTAB. Absent: accessory muscle use, rales, rhonchi, wheezes - Cardiovascular Cardiovascular exam: Present: RRR, +S1, +S2. Absent: diastolic murmur, gallop, rubs, systolic murmur - GI/Abdominal GI/Abdominal exam: Present: normal bowel sounds, soft, no peritoneal signs. Absent: distended, tenderness - Extremities Exam Extremities exam: Present: pedal edema (chronic venous stasis changes), warm, radial pulses palpable and symetrical. Absent: calf tenderness, cyanotic - Neurological Exam Neurological exam: Present: CN II-XII intact, oriented X3, no focal deficits. Absent: pronater drift, facial droop, speech deficit - Skin Skin exam: Present: dry, intact Internal Medicine: Result - Labs CBC & Chem 7: 10/05/16 05:29 10/05/16 05:29 Labs: Short CBC 10/05/16 Range/Units 05:29 WBC 11.7 H (4.3-11.1) K/mcL Hgb 8.5 L (11.5-15.4) g/dL Hct 28.2 L (35.3-44.9) % Plt Count 314 (140-400) K/mcL Neutrophils # 7.6 (1.6-8.9) K/mcL BMP 10/05/16 05:29 Sodium 141 Potassium 3.8 Chloride 101 Carbon Dioxide 30 H BUN 18 Creatinine 0.70 Glucose 228 H Calcium 9.2 - ABG Interpretation ABG results: ABG ABG pH 7.33 pH Units (7.32-7.45) D 10/01/16 08:18 ABG pCO2 64 mmHg (35-45) H D 10/01/16 08:18 ABG pO2 120 mmHg (85-104) H 10/01/16 08:18 ABG O2 Saturation 98 % (95-98) 10/01/16 08:18 PT/INR, D-dimer PT 13.4 Seconds (9.4-12.1) H 10/01/16 07:52 Consult Discharge Plan - Plan Referrals: Luis Ron MD [Primary Care Provider] - 10/11/16 1:20 pm Zara Brady DO [Partnered Physician] - 10/18/16 1:00 pm
[2016-10-05] MEDS ORDERED: Insulin DETEMIR 100 UNIT/ML X5UNITS SQ SCH (21:00)
[2016-10-05] MEDS: *HR* OxyCODONE Immed Rel 5 MG TABLET PO PRN (21:09)
[2016-10-06] MEDS: Ipratropium/Albuterol Neb 3 ML IH SCH ×3 (04:16→11:06)
[2016-10-06 04:53] LABS: Basophils # 0.1 K/mcL (0.0-0.2); Basophils % 0.3 %; Eosinophils # 0.1 K/mcL (0.0-0.6); Eosinophils % 0.7 %; Hematocrit 28.7 % (35.3-44.9); Hemoglobin 8.5 g/dL (11.5-15.4); Immature Granulocytes % 0.5 % (0-4); Lymphocytes # 4.1 K/mcL (0.6-4.6); Lymphocytes % 28.4 %; Mean Corpuscular HGB Conc 29.6 g/dL (31.6-35.5); Mean Corpuscular Hemoglobin 23.9 pg (28.0-33.3); Mean Corpuscular Volume 80.6 fL (83.0-100.0); Mean Platelet Volume 9.7 fL (9.4-12.4); Monocytes # 1.2 K/mcL (0.0-1.3); Monocytes % 8.3 %; Neutrophils # 8.8 K/mcL (1.6-8.9); Platelet Count 335 K/mcL (140-400); Red Blood Count 3.56 M/mcL (3.82-4.97); Red Cell Distribution Width 15.2 % (11.5-14.5); Segmented Neutrophils % 61.8 %
[2016-10-06 05:07] LABS: BUN/Creatinine Ratio 28 (6-26); Blood Urea Nitrogen 20 mg/dL (7-20); Calcium 9.2 mg/dL (8.6-10.8); Carbon Dioxide 32 mEq/L (19-29); Chloride 100 mEq/L (98-109); Glucose 195 mg/dL (70-99); Osmolality,Calculated 302 (280-300); Sodium 142 mEq/L (136-145); eGFR For African Americans > 60 (> 60); eGFR For Non-African Americans > 60 (> 60)
[2016-10-06] MEDS: *HR* Heparin 5,000 UNIT/ML VIAL SQ SCH (06:39)
[2016-10-06] MEDS: Aspirin Enteric Coated 81 MG Tablet PO SCH (07:48)
[2016-10-06] MEDS: levoFLOXacin 500 MG TABLET PO SCH (07:48)
[2016-10-06] MEDS: predniSONE 20 MG TABLET PO SCH (07:48)
[2016-10-06] MEDS: Metoprolol XL (24 HR) Succ 50 MG TAB.ER.24H PO SCH (07:49)
[2016-10-06] MEDS: Furosemide 40 MG TABLET PO SCH (07:49)
[2016-10-06] MEDS: Gabapentin 400 MG CAPSULE PO SCH (07:49)
[2016-10-06] MEDS: Isosorbide MONOnitrate (24 HR) 60 MG TAB.ER.24H PO SCH (07:49)
[2016-10-06] MEDS: Insulin LISPRO 300 UNITS/3 ML VIAL SQ SCH ×4 (07:50→11:56)
[2016-10-06] MEDS ORDERED: predniSONE 20 MG TABLET PO SCH (08:03)
[2016-10-06] MEDS ORDERED: Lisinopril 20 MG TABLET PO SCH (09:00)
[2016-10-06] MEDS ORDERED: amLODIPine 5 MG TABLET PO SCH (09:00)
[2016-10-06 11:52] VITALS: BP 141/55
[2016-10-06] MEDS ORDERED: hydrALAZINE 10 MG TABLET PO SCH (12:00)
--- NOTE | 2016-10-06 12:52 | Discharge Summary ---
Date of Encounter: 10/06/16 Time of Encounter: 10:50 - Discharge Diagnosis (1) Acute respiratory failure with hypoxia and hypercapnia Priority: Primary Status: Acute (2) CAP (community acquired pneumonia) Priority: Primary Status: Acute (3) COPD exacerbation Priority: Primary Status: Acute (4) Congestive heart failure Priority: Secondary Status: Chronic Qualifiers: Congestive heart failure type: diastolic Congestive heart failure chronicity: chronic Qualified Code(s): I50.32 - Chronic diastolic (congestive ) heart failure (5) Hypertensive urgency Priority: Primary Status: Resolved (6) Sepsis Priority: Primary Status: Acute Qualifiers: Sepsis type: sepsis due to unspecified organism Qualified Code(s): A41.9 - Sepsis, unspecified organism (7) Diabetes Priority: Secondary Status: Chronic Qualifiers: Diabetes mellitus type: type 2 Diabetes mellitus complication detail: with diabetic retinopathy Diabetic retinopathy severity: with unspecified retinopathy severity Diabetes mellitus macular edema: without macular edema Diabetes mellitus exterminator insulin use: without longterm use Laterality: unspecified laterality Qualified Code(s): E11.319 - Type 2 diabetes mellitus with unspecified diabetic retinopathy without macular edema (8) Peripheral vascular disease Priority: Secondary Status: Chronic (9) CAD (coronary artery disease) Priority: Secondary Status: Chronic Qualifiers: Coronary Disease-Associated Artery/Lesion type: [place] artery [place] vs. transplanted heart: [place] heart Associated angina: with stable angina Qualified Code(s): I25.118 - Atherosclerotic heart disease of [place] coronary artery with other forms of angina pectoris (10) Obesity (BMI 30-39.9) Priority: Secondary Status: Chronic (11) Tobacco abuse Priority: Secondary Status: Chronic - Discharge Medications Prescriptions: HydrALAZINE 10 mg PO Q6HR #90 tablet Amlodipine [Norvasc] 10 mg PO DAILY #30 tablet Levofloxacin [Levaquin] 500 mg PO DAILY #2 tablet PredniSONE 10 mg PO DAILY #4 tablet Home Medications: Metoprolol XL (24 HR) Succ [Toprol XL] 100 mg PO DAILY #30 tab.er.24h 04/26/15 [ Rx] Metformin [Glucophage] 1,000 mg PO BID 05/21/15 [History] Isosorbide MONOnitrate (24 HR) [Imdur] 120 mg PO DAILY 30 Days 11/08/15 [Rx] Atorvastatin [Lipitor] 40 mg PO HS #30 tablet 03/28/16 [Rx] Furosemide [Lasix] 40 mg PO BID 06/01/16 [History] Ondansetron [Zofran] 8 mg PO DAILY 06/01/16 [History] Potassium Chloride [K-Tab ER] 10 meq PO BID 06/01/16 [History] Clopidogrel [Plavix] 75 mg PO DAILY 10/01/16 [History] Fenofibrate [Lofibra] 160 mg PO DAILY 10/01/16 [History] Gabapentin 800 mg PO TID 10/01/16 [History] GlipiZIDE [Glipizide] 10 mg PO BID 10/01/16 [History] LORazepam [Ativan] 0.5 mg PO Q8H PRN 10/01/16 [History] Nitroglycerin [Nitrostat] 0.4 mg PO AD PRN 10/01/16 [History] Oxycodone HCl 10 mg PO TID PRN 10/01/16 [History] Oxycodone HCl 20 mg PO HS 10/01/16 [History] Amlodipine [Norvasc] 10 mg PO DAILY #30 tablet 10/06/16 [Rx] HydrALAZINE 10 mg PO Q6HR #90 tablet 10/06/16 [Rx] Levofloxacin [Levaquin] 500 mg PO DAILY #2 tablet 10/06/16 [Rx] Lisinopril [Zestril] 40 mg PO DAILY #60 tab 10/06/16 [Rx] PredniSONE 10 mg PO DAILY #4 tablet 10/06/16 [Rx] Allergies/Adverse Reactions: Allergies No Known Allergies Allergy (Verified 07/30/16 21:39) Date of admission: 10/01/16 08:57 Primary care physician: Luis Ron MD Consults: 10/02/16 07:33 Consult to Cardiology [CONS] Stat Comment: Consulting Provider: [facility] [place] Reason for Consult: SOB, elevated troponin from 0.02 to 1.54 Call Completed: Yes Discharging clinician: Jayce Lu Anticipated date of discharge: 10/06/16 - Patient Status Disposition: Home, Self-Care Condition: Good Functional capacity at discharge: independent ambulation Overall status at discharge: patient is back to baseline - Discharge Instructions Instructions: Prednisone (By mouth), Hydralazine (By mouth), Amlodipine (By mouth), Levofloxacin (By mouth), Heart Failure (DC), Diabetes Mellitus Type 2 in Adults (DC), Chronic Hypertension (DC) Follow Up With: Luis Ron MD [Primary Care Provider] - 10/11/16 1:20 pm Zara Brady DO [Partnered Physician] - 10/18/16 1:00 pm - Diet and Activity Activity: resume usual activities as tolerated, wear oxygen at all times Diet: diabetic diet, low fat, low cholesterol, low salt diet Interval History: See below Hospital course: Ms. Nieves is a 65 year old female 65 Y/O F admitted for management of Sepsis with lactic acidosis-source is PNA, Hypertensive urgency, demand ischemia, acute on chronic hypoxic and hypercapneic respiratory failure secondary to COPDE She has a PMH of chronic respiratory failure on home O2, DM, HTN, HLD, Obesity, Patient received treatment with antibiotics, intravenous steroids, oxygen supplementation Lactic acidosis and sepsis has resolved Hospital stay with hyperglycemia due to steroid use, which improved upon tapering steroids and with insulin Patient also had persistently uncontrolled HTN despite use of home medications- this is multifactorial from possible inadequate coverage at home as patient presented with HTN urgency, steroid use also contributory She was started on amlodipine and hydralazine as well as increasing doses of her home medications BP controlled on same medications She is seen at bedside this morning, has no new complains She has made significant improvement and is stable to be discharge home on prednsione taper, oral antibiotics and follow up with PCP Tobacco cessation counselling done for 3 minutes Patient reports Flu and Pneumovac up to date Plan of care discussed, verbalized understanding Time spent discussing smoking cessation with patient: 3 to 10 minutes (3 minutes ) - Time Spent with Patient Total time spent providing and/or coordinating discharge services: Less than 30 minutes - Constitutional Vitals: Temp Pulse Resp BP Pulse Ox 98 F 77 18 141/55 96 10/06/16 11:48 10/06/16 11:48 10/06/16 11:48 10/06/16 11:48 10/06/16 11:48 General appearance: Present: cooperative, A&O X 3, pleasant, no acute distress, obese, answers questions appropriately - Head Head exam: Present: atraumatic, normocephalic - Eye Eye exam: Present: PERRL, conjuntiva pink, sclera anicteric Pupils: Present: PERRL - Neck Neck exam general surgery: Present: supple, trachea midline. Absent: lymphadenopathy - Respiratory Respiratory exam: Present: CTAB. Absent: accessory muscle use, rales, rhonchi, wheezes - Cardiovascular Cardiovascular exam: Present: RRR, +S1, +S2. Absent: diastolic murmur, gallop, rubs, systolic murmur - GI/Abdominal GI/Abdominal exam: Present: normal bowel sounds, soft, no peritoneal signs. Absent: distended, tenderness - Extremities Exam Extremities exam: Present: warm, radial pulses palpable and symetrical. Absent : calf tenderness, cyanotic, pedal edema - Neurological Exam Neurological exam: Present: CN II-XII intact, oriented X3, no focal deficits. Absent: pronater drift, facial droop, speech deficit - Skin Skin exam: Present: dry, intact
== END 2016-10-06 14:27 | disposition home or self-care (01) | DRG 871 ==
LOC: MERGE 07:11 → EMEROO 07:11 → 2NNU 07:11 → SUATTDRO 08:57 → 2NNU 10:36
PROVIDERS: ADMIT Internal Medicine; ATTEND Internal Medicine